=== PATIENT | female | born 1990 | race African-American/Black ===

== ENCOUNTER 2016-08-25 20:47 | Outpatient (CLI) | payer MEDICAID ==
[2016-08-25 21:14] LABS: APPEARANCE,URINE CLEAR; BILIRUBIN,URINE NEGATIVE (NEGATIVE); GLUCOSE, URINE NEGATIVE (NEGATIVE); KETONES,URINE NEGATIVE (NEGATIVE); LEUKOCYTE ESTERASE,URINE NEGATIVE (NEGATIVE); NITRITE,URINE NEGATIVE (NEGATIVE); PROTEIN,URINE NEGATIVE (NEGATIVE); URINE SPECIFIC GRAVITY 1.002; UROBILINOGEN,URINE NEGATIVE mg/dL (<2.0)
[2016-08-25 21:23] LABS: URINE BARBITURATES SCREEN NEGATIVE; URINE METHADONE SCREEN NEGATIVE; URINE OPIATES LOW NEGATIVE; URINE PHENCYCLIDINE SCREEN NEGATIVE
--- NOTE | 2016-08-25 23:16 | Non Stress Test Report ---
Non Stress Test Datetime Report Generated by CPN: 08/25/2016 23:16 DEMOGRAPHIC EGA NST: 39.6 INDICATION Indication for Study: Other Indication for Study (NST) Other: LC MONITORING Monitor Explained: Monitor Explained; Test Explained; Patient Verbalized Understanding Time on Monitor: 08/25/2016 21:03 Time off Monitor: 08/25/2016 21:45 NST Duration: 42 NST INTERVENTIONS NST Interventions: PO Hydration Physician Notified NST: Dr. Kim BABY A: [id number] BABY A Movement : Present Contraction Frequency : 5-6 FHR Baseline : 130 Accelerations : 15X15 Decelerations : None Variability : Moderate 6-25bpm NST Review: Meets Criteria for Reactive NST NST Review and Verified By : Loretta Carlos RNC NST Results: Reactive NST REPORT Report Trigger: Send Report
== END 2016-08-25 23:18 | disposition home or self-care (01) ==
LOC: LC 20:47
PROVIDERS: ATTEND Student in an Organized Health Care Education/Training Program
PROC: 4A1HXCZ Monitoring of Products of Conception, Cardiac Rate, External Approach (ICD-10-PCS; principal; 2016-08-25)
DX: O47.1 False labor at or after 37 completed weeks of gestation (principal); Z3A.39 39 weeks gestation of pregnancy
CPT/HCPCS: 59025; 80307; 81005

== ENCOUNTER 2016-08-27 14:05 | Inpatient (IN) | payer MEDICAID ==
[2016-08-27 14:54] LABS: APPEARANCE,URINE CLEAR; BILIRUBIN,URINE NEGATIVE (NEGATIVE); GLUCOSE, URINE NEGATIVE (NEGATIVE); KETONES,URINE NEGATIVE (NEGATIVE); LEUKOCYTE ESTERASE,URINE TRACE (NEGATIVE); NITRITE,URINE NEGATIVE (NEGATIVE); PROTEIN,URINE NEGATIVE (NEGATIVE); URINE SPECIFIC GRAVITY 1.002; UROBILINOGEN,URINE NEGATIVE mg/dL (<2.0)
[2016-08-27 15:17] LABS: URINE BARBITURATES SCREEN NEGATIVE; URINE METHADONE SCREEN NEGATIVE; URINE OPIATES LOW NEGATIVE; URINE PHENCYCLIDINE SCREEN NEGATIVE
[2016-08-27] MEDS ORDERED: RINGERS SOLUTION,LACTATED 1,000 ML IV ONE (17:48)
[2016-08-27 18:13] LABS: ABSOLUTE LYMPHOCYTES (AUTO) 1.3 10^3/uL (0.5-4.7); ABSOLUTE MONOCYTES (AUTO) 0.6 10^3/uL (0.1-1.4); BASOPHILS % (AUTO) 0.2 % (0-2); EOSINOPHILS % (AUTO) 0.3 % (0-6); HEMATOCRIT 30.9 % (36.0-47.0); HEMOGLOBIN 10.6 g/dL (12.0-15.5); HGB HCT DIFFERENCE 0.9; LYMPHOCYTES % (AUTO) 19.1 % (13-45); MEAN CORPUSCULAR HEMOGLOBIN 28.4 pg (27.0-33.4); MEAN CORPUSCULAR HGB CONC 34.4 g/dL (32.0-36.0); MEAN CORPUSCULAR VOLUME 83 fl (80-97); MONOCYTES % (AUTO) 8.9 % (3-13); RED BLOOD COUNT 3.74 10^6/uL (3.72-5.28); RED CELL DISTRIBUTION WIDTH 13.3 % (11.5-14.0); SEGMENTED NEUTROPHILS % (AUTO) 71.5 % (42-78)
[2016-08-27] MEDS: RINGERS SOLUTION,LACTATED 1,000 ML IV PRN ×2 (18:57→23:55)
--- NOTE | 2016-08-27 20:01 | L&D Flow Sheet ---
LD Flowsheet Datetime Report Generated by CPN: 08/27/2016 20:00 Datetime: 08/27/2016 19:27 NBP Sys/Adriana/Mean (mmHg): 116 (QS system process) : 72 (QS system process) : 86 (QS system process) Pulse: 78 (QS system process) LaborFlag: Antepartum (QS system process) Datetime: 08/27/2016 19:16 Level of Consciousness: Fully Conscious (Sweta Greenwood, JACKIE) DTR's/Clonus: DTRs 1+ (Sweta Chalman, RN) Headache: Denies (Sweta Chalman, RN) Breath Sounds, Left: Clear and Equal (Sweta Chalman, RN) Breath Sounds, Right: Clear and Equal (Wseta Chalman, RN) Nausea/Vomiting: Denies (Sweta Chalman, RN) RUQ Epigastric Pain: Denies (Sweta Chalman, RN) Datetime: 08/27/2016 19:08 Additional Nursing Comments: [facility] and care assumed (Sweta Chalman, RN) Datetime: 08/27/2016 19:07 Patient Care Comments: pt up to bathroom (Sweta Chalman, RN) Datetime: 08/27/2016 19:00 Monitor Mode: External (Kelly Marhefka, RN) Frequency (min): 2-5 (Kelly Marhefka, RN) Quality: Mild/Moderate (Kelly Marhefka, RN) Duration (sec): 40-160 (Kelly Marhefka, RN) Resting Tone (Palpate): Relaxed (Kelly Marhefka, RN) Monitor Mode: External US (Kelly Marhefka, RN) FHR Baseline Rate : 125 (Kelly Marhefka, RN) FHR Baseline Changes: No Baseline Change (Kelly Marhefka, RN) Variability: Moderate 6-25 bpm (Kelly Marhefka, RN) Accelerations: 15X15 (Kelly Marhefka, RN) Decelerations: None (Kelly Marhefka, RN) Datetime: 08/27/2016 18:54 I/O Interventions: Up to BR (Kelly Marhefka, RN) Datetime: 08/27/2016 18:40 Unit Routine: Consents Signed (Kelly Marhefka, RN) Datetime: 08/27/2016 18:30 Monitor Mode: External (Kelly Marhefka, RN) Frequency (min): 2-4 (Kelly Marhefka, RN) Quality: Mild/Moderate (Kelly Marhefka, RN) Duration (sec): 60-110 (Kelly Marhefka, RN) Resting Tone (Palpate): Relaxed (Kelly Marhefka, RN) Monitor Mode: External US (Kelly Marhefka, RN) FHR Baseline Rate : 125 (Kelly Marhefka, RN) FHR Baseline Changes: No Baseline Change (Kelly Marhefka, RN) Variability: Moderate 6-25 bpm (Kelly Marhefka, RN) Accelerations: 15X15 (Kelly Marhefka, RN) Decelerations: None (Kelly Marhefka, RN) Datetime: 08/27/2016 18:24 IV/Blood Work: IV Started (Kelly Edwards, RN) Datetime: 08/27/2016 18:08 Temperature (F): 98.3 (Kelly Edwards, RN) Temperature (C): 36.8 (QS system process) Temperature Route: Oral (Kelly Edwards, RN) LaborFlag: Antepartum (QS system process) Datetime: 08/27/2016 18:00 Monitor Mode: External; Palpation (Kelly Edwards RN) Frequency (min): 3-4 (Kelly Edwards RN) Quality: Mild/Moderate (Kelly Edwards RN) Duration (sec): 50-80 (Kelly Edwards RN) Resting Tone (Palpate): Relaxed (Kelly Edwards RN) Monitor Mode: External US (Kelly Edwards RN) FHR Baseline Rate : 125 (Kelly Edwards RN) FHR Baseline Changes: No Baseline Change (Kelly Marhefka, RN) Variability: Moderate 6-25 bpm (Kelly Marhefka, RN) Accelerations: 15X15 (Kelly Marhefka, RN) Decelerations: None (Kelly Marhefka, RN) Datetime: 08/27/2016 17:58 IV/Blood Work: Labs Drawn (Kelly Marhefka, RN) Datetime: 08/27/2016 17:43 Communication: Report Given to @ Dr. Kraus (Kelly Marhefka, RN) Communication Comments: Dr. Kraus notified of cervical change, order received to admit patient. (Kelly Marhefka, RN) Datetime: 08/27/2016 17:31 Patient Care Comments: Pt in chair position in bed (Kelly Edwards RN) Datetime: 08/27/2016 17:28 Dilatation (cm): 4.0 (Kelly Edwards RN) Effacement (%): 90 (Kelly Edwards RN) Station: -2 (Kelly Edwards RN) Exam by: Bubba Edwards RN (Kelly Edwards RN) Membrane Status: Bulging (Kelly Edwards RN) Vaginal Bleeding: None (Kelly Edwards RN) Cervix, Consistency: Soft (Kelly Edwards RN) Cervix, Position: Posterior (Kelly Edwards RN) Datetime: 08/27/2016 16:38 Patient Care Comments: Monitors removed, pt sent walking with reactive NST. (Kelly Edwards RN) Datetime: 08/27/2016 16:30 Monitor Mode: External (Kelly Marhefka, RN) Frequency (min): 6-8 (Kelly Marhefka, RN) Quality: Moderate (Kelly Marhefka, RN) Duration (sec): 60-100 (Kelly Marhefka, RN) Resting Tone (Palpate): Relaxed (Kelly Marhefka, RN) Monitor Mode: External US (Kelly Marhefka, RN) FHR Baseline Rate : 135 (Kelly Marhefka, RN) FHR Baseline Changes: No Baseline Change (Kelly Marhefka, RN) Variability: Moderate 6-25 bpm (Kelly Marhefka, RN) Accelerations: 15X15 (Kelly Marhefka, RN) Decelerations: None (Kelly Marhefka, RN) Datetime: 08/27/2016 16:24 NBP Sys/Adriana/Mean (mmHg): 119 (QS system process) : 73 (QS system process) : 92 (QS system process) Pulse: 68 (QS system process) Respirations: 16 (Kelly Segundofka, RN) LaborFlag: Antepartum (QS system process) Datetime: 08/27/2016 16:03 I/O Interventions: Up to BR (Kelly Segundofka, RN) Datetime: 08/27/2016 16:00 Monitor Mode: External (Kelly Edwards, RN) Frequency (min): 6-8 (Kelly Edwards, RN) Quality: Moderate (Kelly dEwards, RN) Duration (sec): 70-100 (Kelly Edwards, RN) Resting Tone (Palpate): Relaxed (Kelly Edwards, RN) Monitor Mode: External US (Kelly Edwards RN) FHR Baseline Rate : 150 (Kelly Edwards, RN) FHR Baseline Changes: No Baseline Change (Kelly Edwards, RN) Variability: Moderate 6-25 bpm (Kelly Segundofka, RN) Accelerations: None (Kelly Edwards, RN) Decelerations: None (Kelly Edwards RN) Communication: Report Given to @ Dr. Kraus (Kelly Edwards RN) Notification Reason: Status Update; Status; Labor Status; Membrane Status; Uterine Activity; Pain (Kelly Edwards RN) Communication Comments: Order received to send pt to U/S for BPP. (Kelly Edwards RN) Datetime: 08/27/2016 15:53 NBP Sys/Adriana/Mean (mmHg): 114 (QS system process) : 67 (QS system process) : 85 (QS system process) Pulse: 74 (QS system process) LaborFlag: Antepartum (QS system process) Datetime: 08/27/2016 15:30 Monitor Mode: External (Kelly Edwards RN) Frequency (min): 5-6 (Kelly Edwards RN) Quality: Moderate (Kelly Edwards RN) Duration (sec): 70-120 (Kelly Edwards RN) Resting Tone (Palpate): Relaxed (Kelly Edwards RN) Monitor Mode: External US (Kelly Marhefka, RN) FHR Baseline Rate : 150 (Kelly Marhefka, RN) FHR Baseline Changes: No Baseline Change (Kelly Marhefka, RN) Variability: Moderate 6-25 bpm (Kelly Marhefka, RN) Accelerations: None (Kelly Marhefka, RN) Decelerations: None (Kelly Marhefka, RN) Datetime: 08/27/2016 15:29 Patient Care Comments: Juice provided (Kelly Marhefka, RN) Datetime: 08/27/2016 15:25 NBP Sys/Adriana/Mean (mmHg): 112 (QS system process) : 72 (QS system process) : 86 (QS system process) Pulse: 74 (QS system process) Respirations: 16 (Kelly Marhefka, RN) Temperature (F): 98.2 (Kelly Marhefka, RN) Temperature (C): 36.8 (QS system process) Temperature Route: Oral (Kelly Marikahefka, RN) LaborFlag: Antepartum (QS system process) Datetime: 08/27/2016 15:22 Patient Position/Activity: Right Lateral; Semi-Fowlers (Kelly Marhefka, RN) Datetime: 08/27/2016 15:18 I/O Interventions: Up to BR (Kelly Marhefka, RN) Datetime: 08/27/2016 15:00 Monitor Mode: External; Palpation (Kelly Marhefka, RN) Frequency (min): 2-6 (Kelly Marhefka, RN) Quality: Mild/Moderate (Kelly Marhefka, RN) Duration (sec): 50-140 (Kelly Edwards RN) Resting Tone (Palpate): Relaxed (Kelly Edwards RN) Monitor Mode: External US (Kelly Edwards RN) FHR Baseline Rate : 160 (Kelly Edwards RN) FHR Baseline Changes: No Baseline Change (Kelly Edwards RN) Variability: Moderate 6-25 bpm (Kelly Edwards RN) Accelerations: None (Kelly Edwards RN) Decelerations: None (Kelly Edwards, RN) Datetime: 08/27/2016 14:43 Frequency (min): 2-3 minutes apart (Kelly Edwards RN) Pain Scale: 4 (Kelly Edwards RN) Pain Presence: Intermittent (Kelly Edwards RN) Pain Type: Contraction (Kelly Edwards RN) Pain Location: Abdomen (Kelly Edwards RN) Pain Goal: 0 (Kelly Edwards RN) Pain Relief Measures: Comfort Measures (Kelly Edwards RN) Pain Coping: Breathing Through Contractions (Kelly Edwards RN) Membrane Status: Intact (Kelly Edwards RN) Vaginal Bleeding: None (Kelly Edwards RN) Level of Consciousness: Fully Conscious (Kelly Edawrds RN) DTR's/Clonus: DTRs 2+; No Clonus (Kelly Edwards RN) Headache: Denies (Kelly Edwards RN) Breath Sounds, Left: Clear and Equal (Kelly Edwards RN) Breath Sounds, Right: Clear and Equal (Kelly Edwards RN) Nausea/Vomiting: Denies (Kelly Edwards RN) RUQ Epigastric Pain: Denies (Kelly Edwards RN) LaborFlag: Antepartum (QS system process) Datetime: 08/27/2016 14:37 I/O Interventions: Popsicle (Kelly Edwards RN) Datetime: 08/27/2016 14:30 Dilatation (cm): 3.0 (Kelly Edwards RN) Effacement (%): 90 (Kelly Edwards RN) Exam by: Bubba Edwards RN (Kelly Edwards RN) Membrane Status: Bulging (Kelly Edwards RN) Vaginal Bleeding: None (Kelly Edwards RN) Cervix, Consistency: Soft (Kelly Edwards RN) Cervix, Position: Posterior (Kelly Edwards RN) Datetime: 08/27/2016 14:23 Patient Position/Activity: Left Lateral; Semi-Fowlers (Kelly Edwards RN) I/O Interventions: Clear Liquids Given (Kelly Edwards RN) Instructional Method: Verbal; Patient Instructed; Verbalized Understanding (Kelly Edwards RN) Plan of Care: Plan of Care Discussed (Kelly Edwards RN) Unit Routine: [place] to Room; Call King; Bed; Unit Personnel; Monitoring; Bathroom Privileges (Kelly Edwards RN) Datetime: 08/27/2016 14:20 Stage of : Antepartum (Kelly Edwards RN)
[2016-08-27] MEDS ORDERED: OXYTOCIN/NORMAL SALINE 20 UNIT/1,000 ML RTUINJ ONE (21:01)
[2016-08-27] MEDS ORDERED: LIDOCAINE 1% INJ-PF (10 MG/ML) 30 ML SDV ONE (21:01)
[2016-08-27] MEDS ORDERED: MISOPROSTOL 0.2 MG TABLET ONE (21:01)
[2016-08-27] MEDS ORDERED: EPHEDRINE SULFATE INJ 50 MG/1 ML AMPULE ONE (21:44)
[2016-08-27] MEDS ORDERED: FENTANYL/BUPIVACAINE/NS/PF 200 MCG/100 ML RTUINJ EPI ONE (21:44)
[2016-08-27] MEDS ORDERED: BUPIVACAINE HCL 0.25 % INJ/PF (2.5 MG/1 ML) 30 ML VIAL ONE (21:44)
[2016-08-27] MEDS ORDERED: OXYTOCIN/NORMAL SALINE 1,000 ML IV PRN (22:46)
--- NOTE | 2016-08-28 03:35 | Delivery Summary ---
Del Sum A-C Datetime Report Generated by CPN: 08/28/2016 03:35 ADMISSION DATA Chief Complaint: Uterine Contractions Indication for Induction: Not Applicable Admission Impression: Term, Intrauterine ; Active Labor; Intact Membranes Admit Provider Comments: Term early labor. gbs neg. arom clear. pain mgmt as per pt DELIVERY PERSONNEL Delivery Doctor:: Klarissa Kraus MD Labor and Delivery Nurse:: Sweta Greenwood RN Labor and Delivery Nurse:: Debra Akhtar RN MATERNAL INFORMATION Delivery Anesthesia: Epidural Medications After Delivery: Pitocin Bolus-Please Comment Meds After Delivery Comment: Pitocin 20 units/1000 ml NS bolus following placenta Estimated Blood Loss (ml): 300 Maternal Complications: None Provider Comments: over lac as above with repair. live male infant ap 8/9. spontaneous intact placenta 3vc. no complications LABOR SUMMARY EDC: 08/26/2016 00:00 No. Babies in Womb: 1 Attempted: No Labor Anesthesia: Epidural LABOR INFORMATION Reason for Induction: Not Applicable Onset of Labor: 08/27/2016 21:39 Complete Dilatation: 08/28/2016 01:18 Oxytocin: Augmentation Group B Beta Strep: negative Antibiotics # of Doses: 0 Antibiotics Time of Last Dose: n/a Steroids Given: None Reason Steroids Not Administered: Not Applicable MEMBRANES Membranes Rupture Method: Artificial Rupture of Membranes: 08/27/2016 20:10 Length of Rupture (hr): 6.88 Amniotic Fluid Color: Clear Amniotic Fluid Amount: Small Amniotic Fluid Odor: Normal STAGES OF LABOR Stage 1 hr: 3 Stage 1 min: 39 Stage 2 hr: 1 Stage 2 min: 45 Stage 3 hr: 0 Stage 3 min: 3 Total Time in Labor hr: 5 Total Time in Labor min: 27 VAGINAL DELIVERY Episiotomy: None Laceration Extension: Second Degree Laceration Type: Perineal Laceration Repair: Yes Laceration Repair Note: 2nd deg perineal repaired with 3-0 vicryl in usual fashion Sponge Count Correct: N/A Sharps Count Correct: N/A CSECTION DELIVERY Primary Indication: N/A Secondary Indication: N/A CSection Incidence: N/A Labor: N/A Elective: N/A CSection Incision: N/A BABY A INFORMATION Delivery Date/Time: 08/28/2016 03:03 Method of Delivery: Vaginal Born in Route : No : N/A Forceps: N/A Vacuum Extraction: N/A Shoulder Dystocia : No PRESENTATION/POSITION BABY A Presentation: Cephalic Cephalic Presentation: Vertex Vertex Position: Occipital anterior Breech Presentation: N/A PLACENTA INFORMATION BABY A Placenta Delivery Time : 08/28/2016 03:06 Placenta Method of Delivery: Spontaneous Placenta Status: Delivered SCORES BABY A Heart Rate 1 min: >100 bpm Resp Effort 1 min: Good Cry Reflex Irritability 1 min: Cough or Sneeze or Pulls Away Muscle Tone 1 min: Active Motion Color 1 min: Blue/Pale Resuscitation Effort 1 min: Tactile Stimulation SCORE 1 MIN: 8 Heart Rate 5 min: >100 bpm Resp Effort 5 min: Good Cry Reflex Irritability 5 min: Cough or Sneeze or Pulls Away Muscle Tone 5 min: Active Motion Color 5 min: Body Ackerman, Extremities Blue SCORE 5 MIN: 9 INFANT INFORMATION BABY A Gestational Age at Delivery: 40.2 Gestational Status: Full Term- 39- 40.6 Weeks Infant Outcome : Liveborn Condition : Stable Sex: Male IDENTIFICATION BABY A Verification Date/Time: 08/28/2016 03:13 ID Band Number: [id number] Mother's Name Verified: Yes RN Verifying Infant: K. Hermilo, RN Additional Verifying Personnel: Maria A Viera, RN CORD INFORMATION BABY A No. Cord Vessels: 3 Nuchal Cord : N/A Cord Blood Taken: Yes-For Storage (Mom's Blood type +) Suction: Mouth; Nose ASSESSMENT BABY A Complications: None Physical Findings at Delivery: Within Normal Limits Respirations: Appears Normal Skin to Skin: Yes Rivet Machine Operator/ALS Called : No Care By: Liudmila Hermilo, RN Transferred To: Remains with Mother BABY B INFORMATION : N/A SIGNATURES Signature: with User ID: [email or web address]
[2016-08-28] MEDS ORDERED: IBUPROFEN 800 MG TABLET ONE (03:49)
[2016-08-28] MEDS ORDERED: ACETAMINOPHEN WITH CODEINE #3 TABLET ONE (03:49)
--- NOTE | 2016-08-28 05:33 | Admission Physical ---
Datetime Report Generated by CPN: 08/28/2016 05:32 CURRENT ADMISSION Hx Assessment: The History has been Reviewed and is Current Chief Complaint: Uterine Contractions Indication for Induction: Not Applicable Admit Plan: Admit to Unit; Initiate Labor Protocol ALLERGIES Medication Allergies: No Medication Allergies: No Known Allergies (08/25/2016) Latex: No Latex Allergies Environmental Allergies: seasonal OBSTETRICAL HISTORY EDC: 08/26/2016 00:00 : 1 Para: 0 Term: 0 : 0 SAB: 0 IAB: 0 Ectopic: 0 Livin Cesareans: 0 VBACs: 0 Multiple Births: 0 Gestational Diabetes: No Rh Sensitization: No Incompetent Cervix: No BENNY: No Infertility: No ART Treatment: No Uterine Anomaly: No IUGR: No Hx Previous C/S: No Macrosomia: No Hx Loss/Stillborn: No PIH: No Hx : No Placenta Previa/Abruption: No Depression/PP Depression: No PTL/PROM: No Post Hemorrhage: No Current Procedures: Ultrasound; NST Obstetrical History Comments: G1PO- Current SEE RECORDS Alcohol: No Marijuana : No Cocaine: No Other Illicit Drugs: No Cigarettes: Former Smoker. 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 Heart Disease: No Hosp/Surgery: No Autoimmune Disorder: No Anesthetic Complications: No Kidney Disease: No Abnormal Pap Smear: No Neuro/Epilepsy: No Psychiatric Disorders: No Other Medical Diseases: No Hepatitis/Liver Disease: No Significant Family History: No Varicosities/Phlebitis: No Trauma/Violence : No Thyroid Dysfunction: No INFECTIOUS HISTORY Gonorrhea: No Genital Herpes: No Chlamydia: No Tuberculosis: No Syphilis: No Hepatitis: No HIV/AIDS Exposure: No Rash or Viral Illness: No HPV: No PHYSICAL EXAM General: Normal HEENT: Deferred Neurologic: Deferred Thyroid: Deferred Heart: Normal Lungs: Normal Breast: Deferred Back: Deferred Abdomen: Normal Genitourinary Exam: Normal Extremities: Normal DTRs: Normal Pelvic Type: Adequate Vital Signs: Reviewed; Within Normal Limits VAGINAL EXAM Contraction Comments: q2-4 MEMBRANES Membranes: Ruptured Amniotic Fluid Color: Clear FETUS A EGA: 40.1 FHR- Baseline: 130 Variability: Moderate 6-25bpm Accelerations: 15X15 Decelerations: None FHR Category: Category I Admit Comment: Term early labor. gbs neg. arom clear. pain mgmt as per pt PLANS FOR LABOR AND DELIVERY Labor and Delivery: None Pain Management: Natural Feeding Preference: Breast Benefit of Breast Feed Discussed: Yes Circumcision: Yes INFORMED CONSENT Signature: with User ID: [email or web address]
[2016-08-28] MEDS ORDERED: DIPH/PERTUSS(ACELL)/TETANUS VAC/PF 0.5 ML SYR (>=10YO) IM PRN (05:44)
[2016-08-28] MEDS ORDERED: OXYTOCIN/NORMAL SALINE 1,000 ML IV PRN (05:44)
[2016-08-28] MEDS ORDERED: ZOLPIDEM TARTRATE 5 MG TABLET PO PRN (05:44)
[2016-08-28] MEDS ORDERED: ACETAMINOPHEN WITH CODEINE #3 TABLET PO PRN ×2 (05:44)
[2016-08-28] MEDS ORDERED: BENZOCAINE/MENTHOL AEROSOL SPRAY 56 ML TOP PRN (05:44)
[2016-08-28] MEDS ORDERED: MEASLES,MUMPS&RUBELLA VACC/PF 0.5 ML VIAL SUBCUT PRN (05:44)
[2016-08-28] MEDS ORDERED: DIBUCAINE 1% OINTMENT 28 GM TP PRN (05:44)
[2016-08-28] MEDS: IBUPROFEN 800 MG TABLET PO SCH ×3 (06:02→21:23)
--- NOTE | 2016-08-28 07:01 | L&D Flow Sheet ---
LD Flowsheet Datetime Report Generated by CPN: 08/28/2016 07:00 Datetime: 08/28/2016 04:51 NBP Sys/Adriana/Mean (mmHg): 125 (QS system process) : 80 (QS system process) : 99 (QS system process) Pulse: 95 (QS system process) LaborFlag: Antepartum (QS system process) Datetime: 08/28/2016 04:36 NBP Sys/Adriana/Mean (mmHg): 144 (QS system process) : 85 (QS system process) : 104 (QS system process) Pulse: 93 (QS system process) LaborFlag: Antepartum (QS system process) Datetime: 08/28/2016 04:20 NBP Sys/Adriana/Mean (mmHg): 134 (QS system process) : 80 (QS system process) : 101 (QS system process) Pulse: 93 (QS system process) LaborFlag: Antepartum (QS system process) Datetime: 08/28/2016 04:06 NBP Sys/Adriana/Mean (mmHg): 134 (QS system process) : 73 (QS system process) : 97 (QS system process) Pulse: 93 (QS system process) LaborFlag: Antepartum (QS system process) Datetime: 08/28/2016 03:51 NBP Sys/Adriana/Mean (mmHg): 128 (QS system process) : 78 (QS system process) : 95 (QS system process) Pulse: 100 (QS system process) Temperature (F): 99.7 (Sweta Greenwood RN) Temperature (C): 37.6 (QS system process) Temperature Route: Axillary (Sweta Greenwood RN) LaborFlag: Antepartum (QS system process) Datetime: 08/28/2016 03:36 NBP Sys/Adriana/Mean (mmHg): 135 (QS system process) : 66 (QS system process) : 94 (QS system process) Pulse: 112 (QS system process) LaborFlag: Antepartum (QS system process) Datetime: 08/28/2016 03:07 Pain Scale: 1 (Sweta Greenwood RN) Pain Presence: Constant (Sweta Greenwood RN) Pain Type: Burning (Sweta Greenwood RN) Pain Location: Perineum (Sweta Greenwood RN) LaborFlag: Antepartum (QS system process) Datetime: 08/28/2016 03:06 Comments: delivery of intact placenta (Sweta Greenwood RN) Datetime: 08/28/2016 03:03 Monitor Mode: External; Palpation (Sweta Greenwood RN) Frequency (min): 2-3 (Sweta Greenwood RN) Quality: Moderate to Strong (Sweta Greewnood RN) Duration (sec): 50-70 (Sweta Greenwood RN) Pattern: Normal: <= 5 Contractions in 10 Minutes (Sweta Greenwood RN) Resting Tone (Palpate): Relaxed (Sweta Greenwood RN) Monitor Mode: External US (Sweta Greenwood RN) FHR Baseline Rate : 115 (Sweta Greenwood RN) FHR Baseline Changes: No Baseline Change (Sweta Greenwood RN) Variability: Moderate 6-25 bpm (Sweta Greenwood, RN) Accelerations: 15X15 (Sweta Greenwood, RN) Decelerations: None (Sweta Greenwood RN) Comments: delivery of viable baby boy. was placed on maternal abd where dried and stimulated. cord was clamped and cut. was then placed on maternal skin to skin (Sweta Greenwood, RN) Datetime: 08/28/2016 02:59 Pushing Progress: with Pushing; Pushing Effectively with Contractions (Sweta Greenwood, RN) Datetime: 08/28/2016 02:57 Patient Care Comments: Dr. Kraus at bedside for delivery (Sweta Greenwood, JACKIE) Datetime: 08/28/2016 02:55 Patient Care Comments: Dr. Kraus called for delivery (Sweta Greenwood RN) Datetime: 08/28/2016 02:51 NBP Sys/Adriana/Mean (mmHg): 130 (QS system process) : 71 (QS system process) : 92 (QS system process) Pulse: 116 (QS system process) LaborFlag: Antepartum (QS system process) Datetime: 08/28/2016 02:45 Monitor Mode: External; Palpation (Sweta Greenwood RN) Frequency (min): 2-3 (Sweta Greenwood RN) Quality: Moderate to Strong (Sweta Greenwood RN) Duration (sec): 50-70 (Sweta Greenwood RN) Pattern: Normal: <= 5 Contractions in 10 Minutes (Sweta Chalman, RN) Resting Tone (Palpate): Relaxed (Sweta Chalman, RN) Monitor Mode: External US (Sweta Greenwood RN) FHR Baseline Rate : 115 (Sweta Krystyna, RN) Variability: Moderate 6-25 bpm (Sweta Chalman, RN) Accelerations: 15X15 (Sweta Chalman, RN) Decelerations: None (Sweta Sherieman, RN) Datetime: 08/28/2016 02:35 NBP Sys/Adriana/Mean (mmHg): 123 (QS system process) : 82 (QS system process) : 95 (QS system process) Pulse: 111 (QS system process) LaborFlag: Antepartum (QS system process) Datetime: 08/28/2016 02:30 Monitor Mode: External; Palpation (Sweta Chalman, RN) Frequency (min): 2-3 (Sweta Chalman, RN) Quality: Moderate to Strong (Sweta Krystyna, RN) Duration (sec): 50-70 (Sweta Krystyna, RN) Pattern: Normal: <= 5 Contractions in 10 Minutes (Sweta Chalman, RN) Resting Tone (Palpate): Relaxed (Sweta Chalman, RN) Monitor Mode: External US (Sweta Chalman, RN) FHR Baseline Rate : 125 (Sweta Chalman, RN) FHR Baseline Changes: Return to Previous Baseline (Sweta Chalman, RN) Variability: Moderate 6-25 bpm (Sweta Chalman, RN) Accelerations: 15X15 (Sweta Chalman, RN) Decelerations: None (Sweta Chalman, RN) Datetime: 08/28/2016 02:26 Pushing: Coached on Pushing; Urge to Push (Sweta Chalman, RN) Pushing Position: Pushing with Contractions (Sweta Chalman, RN) Pushing Progress: Descent with Pushing (Sweta Chalman, RN) Datetime: 08/28/2016 02:22 Patient Care Comments: pt placed in stirrups and pushing with RN continuously at bedside (Sweta Chalman, RN) Datetime: 08/28/2016 02:21 NBP Sys/Adriana/Mean (mmHg): 129 (QS system process) : 88 (QS system process) : 103 (QS system process) Pulse: 109 (QS system process) LaborFlag: Antepartum (QS system process) Datetime: 08/28/2016 02:18 Pitocin (milliunit): Pitocin Increased to (milliunits) @ (Annotations: 10) (Sweta Chalman, RN) Datetime: 08/28/2016 02:15 Monitor Mode: External; Palpation (Sweta Chalman, RN) Frequency (min): 2-3 (Sweta Chalman, RN) Quality: Moderate to Strong (Sweta Chalman, RN) Duration (sec): 50-70 (Sweta Chalman, RN) Pattern: Normal: <= 5 Contractions in 10 Minutes (Sweta Chalman, RN) Resting Tone (Palpate): Relaxed (Sweta Chalman, RN) Monitor Mode: External US (Sweta Chalman, RN) FHR Baseline Rate : 120 (Sweta Chalman, RN) Variability: Moderate 6-25 bpm (Sweta Chalman, RN) Accelerations: 15X15 (Sweta Chalman, RN) Decelerations: None (Sweta Chalman, RN) Datetime: 08/28/2016 02:07 NBP Sys/Adriana/Mean (mmHg): 114 (QS system process) : 64 (QS system process) : 82 (QS system process) Pulse: 85 (QS system process) LaborFlag: Antepartum (QS system process) Datetime: 08/28/2016 02:00 Monitor Mode: External; Palpation (Sweta Chalman, RN) Frequency (min): 2-3 (Sweta Chalman, RN) Quality: Moderate to Strong (Sweta Chalman, RN) Duration (sec): 50-80 (Sweta Chalman, RN) Pattern: Normal: <= 5 Contractions in 10 Minutes (Sweta Chalman, RN) Resting Tone (Palpate): Relaxed (Sweta Chalman, RN) Monitor Mode: External US (Sweta Chalman, RN) FHR Baseline Rate : 125 (Sweta Chalman, RN) FHR Baseline Changes: No Baseline Change (Sweta Chalman, RN) Variability: Moderate 6-25 bpm (Sweta Chalman, RN) Accelerations: 15X15 (Sweta Chalman, RN) Decelerations: None (Sweta Chalman, RN) Datetime: 08/28/2016 01:51 NBP Sys/Adriana/Mean (mmHg): 120 (QS system process) : 58 (QS system process) : 82 (QS system process) Pulse: 104 (QS system process) LaborFlag: Antepartum (QS system process) Datetime: 08/28/2016 01:45 Monitor Mode: External; Palpation (Sweta Chalman, RN) Frequency (min): 1-3 (Sweta Chalman, RN) Quality: Moderate to Strong (Sweta Chalman, RN) Duration (sec): 50-70 (Sweta Chalman, RN) Pattern: Normal: <= 5 Contractions in 10 Minutes (Sweta Chalman, RN) Resting Tone (Palpate): Relaxed (Sweta Chalman, RN) Monitor Mode: External US (Sweta Chalman, RN) FHR Baseline Rate : 135 (Sweta Chalman, RN) FHR Baseline Changes: No Baseline Change (Sweta Chalman, RN) Variability: Moderate 6-25 bpm (Sweta Chalman, RN) Accelerations: 15X15 (Sweta Chalman, RN) Decelerations: None (Sweta Chalman, RN) Datetime: 08/28/2016 01:36 NBP Sys/Adriana/Mean (mmHg): 116 (QS system process) : 70 (QS system process) : 85 (QS system process) Pulse: 95 (QS system process) LaborFlag: Antepartum (QS system process) Datetime: 08/28/2016 01:30 Monitor Mode: External; Palpation (Sweta Chalman, RN) Frequency (min): 2-4 (Sweta Chalman, RN) Quality: Moderate to Strong (Sweta Chalman, RN) Duration (sec): 50-70 (Sweta Chalman, RN) Pattern: Normal: <= 5 Contractions in 10 Minutes (Sweta Chalman, RN) Resting Tone (Palpate): Relaxed (Sweta Chalman, RN) Monitor Mode: External US (Sweta Chalman, RN) FHR Baseline Rate : 135 (Sweta Chalman, RN) FHR Baseline Changes: No Baseline Change (Sweta Chalman, RN) Variability: Moderate 6-25 bpm (Sweta Chalman, RN) Accelerations: 15X15 (Sweta Chalman, RN) Decelerations: None (Sweta Chalman, RN) Datetime: 08/28/2016 01:22 Communication Comments: report to Dr. Kraus. Provider aware that pt is complete but needs to labor down in order to gain urge to push (Sweta Chalman, RN) Datetime: 08/28/2016 01:21 NBP Sys/Adriana/Mean (mmHg): 106 (QS system process) : 69 (QS system process) : 81 (QS system process) Pulse: 100 (QS system process) LaborFlag: Antepartum (QS system process) Datetime: 08/28/2016 01:20 Patient Position/Activity: Left Lateral; Peanut Ball (Sweta Greenwood, RN) Datetime: 08/28/2016 01:18 Dilatation (cm): 10.0 (Sweta Greenwood RN) Effacement (%): 100 (Sweta Greenwood RN) Station: 1 (Sweta Greenwood RN) Exam by: Srinivas Greenwood RN (Sweta Greenwood RN) Patient Care Comments: pt states the urge to have a bowel movement. SVE (Sweta Greenwood RN) Datetime: 08/28/2016 01:15 Monitor Mode: External; Palpation (Sweta Greenwood RN) Frequency (min): 2-3 (Sweta Greenwood RN) Quality: Moderate to Strong (Sweta Greenwood RN) Duration (sec): 50-70 (Sweta Greenwood RN) Pattern: Normal: <= 5 Contractions in 10 Minutes (Sweta Greenwood RN) Resting Tone (Palpate): Relaxed (Sweta Greenwood RN) Monitor Mode: External US (Sweta Greenwood RN) FHR Baseline Rate : 135 (Sweta Greenwood RN) FHR Baseline Changes: No Baseline Change (Sweta Greenwood RN) Variability: Moderate 6-25 bpm (Sweta Greenwood RN) Accelerations: 15X15 (Sweta Greenwood RN) Decelerations: None (Sweta Greenwood RN) Datetime: 08/28/2016 01:06 NBP Sys/Adriana/Mean (mmHg): 107 (QS system process) : 66 (QS system process) : 82 (QS system process) Pulse: 115 (QS system process) LaborFlag: Antepartum (QS system process) Datetime: 08/28/2016 01:00 Monitor Mode: External; Palpation (Sweta Greenwood, RN) Frequency (min): 2-4 (Sweta Krystyna, RN) Quality: Moderate to Strong (Sweta Sherieman, RN) Duration (sec): 50-70 (Sweta Sherieman, RN) Pattern: Normal: <= 5 Contractions in 10 Minutes (Sweta Sherieman, RN) Resting Tone (Palpate): Relaxed (Sweta Krystyna, RN) Monitor Mode: External US (Sweta Krystyna, RN) FHR Baseline Rate : 135 (Sweta Sherieman, RN) FHR Baseline Changes: No Baseline Change (Sweta Chalman, RN) Variability: Moderate 6-25 bpm (Sweta Chalman, RN) Accelerations: 15X15 (Sweta Chalman, RN) Decelerations: None (Sweta Chalman, RN) Datetime: 08/28/2016 00:50 NBP Sys/Adriana/Mean (mmHg): 102 (QS system process) : 56 (QS system process) : 72 (QS system process) Pulse: 110 (QS system process) Pitocin (milliunit): Pitocin Remains (milliunits) @ (Annotations: 8) (Sweta Greenwood RN) LaborFlag: Antepartum (QS system process) Datetime: 08/28/2016 00:45 Monitor Mode: External; Palpation (Sweta Greenwood RN) Frequency (min): 2-3 (Sweta Greenwood RN) Quality: Moderate to Strong (Sweta Greenwood RN) Duration (sec): 50-70 (Sweta Greenwood RN) Pattern: Normal: <= 5 Contractions in 10 Minutes (Sweta Greenwood RN) Resting Tone (Palpate): Relaxed (Sweta Greenwood RN) Monitor Mode: External US (Sweta Greenwood RN) FHR Baseline Rate : 135 (Sweta Greenwood RN) FHR Baseline Changes: Return to Previous Baseline (Sweta Greenwood RN) Variability: Moderate 6-25 bpm (Sweta Greenwood RN) Accelerations: 15X15 (Sweta Chalman, RN) Decelerations: None (Sweta Chalman, RN) Datetime: 08/28/2016 00:37 NBP Sys/Adriana/Mean (mmHg): 103 (QS system process) : 61 (QS system process) : 78 (QS system process) Pulse: 95 (QS system process) LaborFlag: Antepartum (QS system process) Datetime: 08/28/2016 00:35 Pitocin (milliunit): Pitocin Remains (milliunits) @ (Annotations: 8) (Sweta Chalman, RN) Datetime: 08/28/2016 00:30 Monitor Mode: External; Palpation (Sweta Chalman, RN) Frequency (min): 2-3 (Sweta Chalman, RN) Quality: Moderate to Strong (Sweta Chalman, RN) Duration (sec): 50-70 (Sweta Chalman, RN) Pattern: Normal: <= 5 Contractions in 10 Minutes (Sweta Chalman, RN) Resting Tone (Palpate): Relaxed (Sweta Chalman, RN) Monitor Mode: External US (Sweta Chalman, RN) FHR Baseline Rate : 140 (Sweta Chalman, RN) Variability: Moderate 6-25 bpm (Sweta Chalman, RN) Accelerations: 15X15 (Sweta Chalman, RN) Decelerations: None (Sweta Chalman, RN) Datetime: 08/28/2016 00:20 Patient Position/Activity: Right Lateral; Peanut Ball (Sweta Chalman, RN) Datetime: 08/28/2016 00:19 Pitocin (milliunit): Pitocin Increased to (milliunits) @ 8 (Sweta Chalman, RN) Datetime: 08/28/2016 00:15 Monitor Mode: External; Palpation (Sweta Sherieman, RN) Frequency (min): 2-3 (Sweta Chalman, RN) Quality: Moderate to Strong (Sweta Chalman, RN) Duration (sec): 50-70 (Sweta Chalman, RN) Pattern: Normal: <= 5 Contractions in 10 Minutes (Sweta Chalman, RN) Resting Tone (Palpate): Relaxed (Sweta Chalman, RN) Monitor Mode: External US (Sweta Chalman, RN) FHR Baseline Rate : 140 (Sweta Chalman, RN) FHR Baseline Changes: No Baseline Change (Sweta Chalman, RN) Variability: Moderate 6-25 bpm (Sweta Chalman, RN) Accelerations: 15X15 (Sweta Chalman, RN) Decelerations: None (Sweta Chalman, RN) Datetime: 08/28/2016 00:05 NBP Sys/Adriana/Mean (mmHg): 99 (QS system process) : 55 (QS system process) : 71 (QS system process) Pulse: 83 (QS system process) LaborFlag: Antepartum (QS system process) Datetime: 08/28/2016 00:00 Monitor Mode: External; Palpation (Sweta Chalman, RN) Frequency (min): 2-4 (Sweta Sherieman, RN) Quality: Moderate to Strong (Sweta Chalman, RN) Duration (sec): 50-70 (Sweta Chalman, RN) Pattern: Normal: <= 5 Contractions in 10 Minutes (Sweta Chalman, RN) Resting Tone (Palpate): Relaxed (Sweta Chalman, RN) Monitor Mode: External US (Sweta Sherieman, RN) FHR Baseline Rate : 140 (Sweta Chalman, RN) Variability: Moderate 6-25 bpm (Sweta Chalman, RN) Accelerations: 15X15 (Sweta Chalman, RN) Decelerations: None (Sweta Chalman, RN) Datetime: 08/27/2016 23:55 IV/Blood Work: New IV Bag Hung (Sweta Greenwood RN) Datetime: 08/27/2016 23:50 NBP Sys/Adriana/Mean (mmHg): 96 (QS system process) : 53 (QS system process) : 69 (QS system process) Pulse: 99 (QS system process) Pitocin (milliunit): Pitocin Increased to (milliunits) @ (Annotations: 6) (Sweta Greenwood RN) LaborFlag: Antepartum (QS system process) Datetime: 08/27/2016 23:45 Monitor Mode: External; Palpation (Sweta Greenwood RN) Frequency (min): 2-4 (Sweta Greenwood RN) Quality: Moderate to Strong (Sweta Greenwood RN) Duration (sec): 50-70 (Sweta Greenwood RN) Pattern: Normal: <= 5 Contractions in 10 Minutes (Sweta Sherieman, RN) Resting Tone (Palpate): Relaxed (Sweta Chalman, RN) Monitor Mode: External US (Sweta Greenwood, RN) FHR Baseline Rate : 135 (Sweta Sherieman, RN) FHR Baseline Changes: No Baseline Change (Sweta Chalman, RN) Variability: Moderate 6-25 bpm (Sweta Chalman, RN) Accelerations: 15X15 (Sweta Chalman, RN) Decelerations: None (Sweta Chalman, RN) Datetime: 08/27/2016 23:36 NBP Sys/Adriana/Mean (mmHg): 93 (QS system process) : 53 (QS system process) : 70 (QS system process) Pulse: 79 (QS system process) LaborFlag: Antepartum (QS system process) Datetime: 08/27/2016 23:30 Monitor Mode: External; Palpation (Sweta Chalman, RN) Frequency (min): 2-3 (Sweta Chalman, RN) Quality: Moderate to Strong (Sweta Chalman, RN) Duration (sec): 50-70 (Sweta Chalman, RN) Pattern: Normal: <= 5 Contractions in 10 Minutes (Sweta Chalman, RN) Resting Tone (Palpate): Relaxed (Sweta Chalman, RN) Monitor Mode: External US (Sweta Chalman, RN) FHR Baseline Rate : 135 (Sweta Chalman, RN) FHR Baseline Changes: Return to Previous Baseline (Sweta Chalman, RN) Variability: Moderate 6-25 bpm (Sweta Chalman, RN) Accelerations: 15X15 (Sweta Chalman, RN) Decelerations: None (Sweta Chalman, RN) Datetime: 08/27/2016 23:28 Patient Position/Activity: Left Lateral; Peanut Ball (Sweta Sherieman, RN) Datetime: 08/27/2016 23:26 Temperature (F): 99.0 (Sweta Sherieman, RN) Temperature (C): 37.2 (QS system process) Temperature Route: Axillary (Sweta Chalman, RN) Pitocin (milliunit): Pitocin Increased to (milliunits) @ 4 (Sweta Greenwood RN) LaborFlag: Antepartum (QS system process) Datetime: 08/27/2016 23:21 NBP Sys/Adriana/Mean (mmHg): 110 (QS system process) : 59 (QS system process) : 80 (QS system process) Pulse: 86 (QS system process) LaborFlag: Antepartum (QS system process) Datetime: 08/27/2016 23:15 Monitor Mode: External; Palpation (Sweta Greenwood RN) Frequency (min): 1-3 (Sweta Greenwood RN) Quality: Moderate to Strong (Sweta Greenwood RN) Duration (sec): 50-70 (Sweta Greenwood RN) Pattern: Normal: <= 5 Contractions in 10 Minutes (Sweta Greenwood RN) Resting Tone (Palpate): Relaxed (Sweta Greenwood RN) Monitor Mode: External US (Sweta Greenwood RN) FHR Baseline Rate : 125 (Sweta Greenwood RN) FHR Baseline Changes: No Baseline Change (Sweta Greenwood RN) Variability: Moderate 6-25 bpm (Sweta Greenwood RN) Accelerations: 10X10 (Sweta Chalman, RN) Decelerations: None (Sweta Greenwood, RN) Datetime: 08/27/2016 23:05 NBP Sys/Adriana/Mean (mmHg): 107 (QS system process) : 69 (QS system process) : 83 (QS system process) Pulse: 100 (QS system process) LaborFlag: Antepartum (QS system process) Datetime: 08/27/2016 23:00 Monitor Mode: External; Palpation (Sweta Greenwood RN) Frequency (min): 2-3 (Sweta Greenwood RN) Quality: Moderate to Strong (Sweta Greenwood RN) Duration (sec): 50-80 (Sweta Greenwood RN) Pattern: Normal: <= 5 Contractions in 10 Minutes (Sweta Chalman, RN) Resting Tone (Palpate): Relaxed (Sweta Chalman, RN) Monitor Mode: External US (Sweta Sherieman, RN) FHR Baseline Rate : 125 (Sweta Sherieman, RN) Variability: Moderate 6-25 bpm (Sweta Chalman, RN) Decelerations: None (Sweta Chalman, RN) Datetime: 08/27/2016 22:58 Pitocin (milliunit): Pitocin Started (milliunits) @ 2 (Sweta Chalman, RN) Datetime: 08/27/2016 22:50 NBP Sys/Adriana/Mean (mmHg): 100 (QS system process) : 56 (QS system process) : 74 (QS system process) Pulse: 114 (QS system process) LaborFlag: Antepartum (QS system process) Datetime: 08/27/2016 22:45 Monitor Mode: External; Palpation (Sweta Sherieman, RN) Frequency (min): 2-3 (Sweta Chalman, RN) Quality: Moderate to Strong (Sweta Chalman, RN) Duration (sec): 40-60 (Sweta Chalman, RN) Pattern: Normal: <= 5 Contractions in 10 Minutes (Sweta Chalman, RN) Resting Tone (Palpate): Relaxed (Sweta Chalman, RN) Monitor Mode: External US (Sweta Chalman, RN) FHR Baseline Rate : 135 (Sweta Chalman, RN) FHR Baseline Changes: No Baseline Change (Sweta Chalman, RN) Variability: Moderate 6-25 bpm (Sweta Chalman, RN) Accelerations: 15X15 (Sweta Chalman, RN) Decelerations: None (Sweta Chalman, RN) Datetime: 08/27/2016 22:35 NBP Sys/Adriana/Mean (mmHg): 103 (QS system process) : 59 (QS system process) : 78 (QS system process) Pulse: 106 (QS system process) LaborFlag: Antepartum (QS system process) Datetime: 08/27/2016 22:30 Monitor Mode: External; Palpation (Sweta Chalman, RN) Frequency (min): 3-4 (Sweta Chalman, RN) Quality: Moderate to Strong (Sweta Chalman, RN) Duration (sec): 40-60 (Sweta Chalman, RN) Pattern: Normal: <= 5 Contractions in 10 Minutes (Sweta Sherieman, RN) Resting Tone (Palpate): Relaxed (Sweta Chalman, RN) Monitor Mode: External US (Sweta Chalman, RN) FHR Baseline Rate : 140 (Sweta Chalman, RN) Variability: Moderate 6-25 bpm (Sweta Chalman, RN) Decelerations: Early; Late (Sweta Chalman, RN) Datetime: 08/27/2016 22:23 Communication Comments: report called to Dr. Kraus. Provider aware that pt temp is 100.2 axillary. Per provider temp recheck in 1 hr. Pt also to start pitocon at 2 milliunits and increase by 2 milliunits q 15 min until labor is adequate (Sweta Greenwood RN) Datetime: 08/27/2016 22:20 NBP Sys/Adriana/Mean (mmHg): 110 (QS system process) : 59 (QS system process) : 78 (QS system process) Pulse: 99 (QS system process) Temperature (F): 100.2 (Sweta Greenwood RN) Temperature (C): 37.9 (QS system process) Temperature Route: Axillary (Sweta Greenwood RN) Patient Position/Activity: Right Lateral; Peanut Ball (Sweta Greenwood RN) LaborFlag: Antepartum (QS system process) Datetime: 08/27/2016 22:19 NBP Sys/Adriana/Mean (mmHg): 113 (QS system process) : 59 (QS system process) : 78 (QS system process) Pulse: 91 (QS system process) LaborFlag: Antepartum (QS system process) Datetime: 08/27/2016 22:18 NBP Sys/Adriana/Mean (mmHg): 115 (QS system process) : 58 (QS system process) : 77 (QS system process) Pulse: 118 (QS system process) LaborFlag: Antepartum (QS system process) Datetime: 08/27/2016 22:17 NBP Sys/Adriana/Mean (mmHg): 104 (QS system process) : 59 (QS system process) : 76 (QS system process) Pulse: 97 (QS system process) LaborFlag: Antepartum (QS system process) Datetime: 08/27/2016 22:16 NBP Sys/Adriana/Mean (mmHg): 112 (QS system process) : 65 (QS system process) : 81 (QS system process) Pulse: 99 (QS system process) LaborFlag: Antepartum (QS system process) Datetime: 08/27/2016 22:15 NBP Sys/Adriana/Mean (mmHg): 117 (QS system process) : 63 (QS system process) : 83 (QS system process) Pulse: 121 (QS system process) Dilatation (cm): 5.5 (Sweta Greenwood RN) Effacement (%): 90 (Sweta Greenwood RN) Station: 0 (Sweta Greenwood RN) Exam by: Srinivas Greenwood RN (Sweta Greenwood RN) LaborFlag: Antepartum (QS system process) Datetime: 08/27/2016 22:14 NBP Sys/Adriana/Mean (mmHg): 126 (QS system process) : 67 (QS system process) : 90 (QS system process) Pulse: 100 (QS system process) LaborFlag: Antepartum (QS system process) Datetime: 08/27/2016 22:13 NBP Sys/Adriana/Mean (mmHg): 114 (QS system process) : 64 (QS system process) : 84 (QS system process) Pulse: 111 (QS system process) Patient Care Comments: ponce cath inserted (Sweta Greenwood RN) LaborFlag: Antepartum (QS system process) Datetime: 08/27/2016 22:12 NBP Sys/Adriana/Mean (mmHg): 107 (QS system process) : 62 (QS system process) : 79 (QS system process) Pulse: 115 (QS system process) LaborFlag: Antepartum (QS system process) Datetime: 08/27/2016 22:11 NBP Sys/Adriana/Mean (mmHg): 121 (QS system process) : 72 (QS system process) : 90 (QS system process) Pulse: 102 (QS system process) LaborFlag: Antepartum (QS system process) Datetime: 08/27/2016 22:07 NBP Sys/Adriana/Mean (mmHg): 153 (QS system process) : 68 (QS system process) : 99 (QS system process) Pulse: 106 (QS system process) LaborFlag: Antepartum (QS system process) Datetime: 08/27/2016 22:06 NBP Sys/Adriana/Mean (mmHg): 144 (QS system process) : 74 (QS system process) : 100 (QS system process) Pulse: 94 (QS system process) LaborFlag: Antepartum (QS system process) Datetime: 08/27/2016 22:05 NBP Sys/Adriana/Mean (mmHg): 147 (QS system process) : 74 (QS system process) : 104 (QS system process) Pulse: 103 (QS system process) LaborFlag: Antepartum (QS system process) Datetime: 08/27/2016 22:04 NBP Sys/Adriana/Mean (mmHg): 142 (QS system process) : 71 (QS system process) : 102 (QS system process) Pulse: 94 (QS system process) Pulse: 99 (QS system process) SpO2 (%): 99 (QS system process) Epidural Procedure: Loading Dose (Sweta Greenwood RN) LaborFlag: Antepartum (QS system process) Datetime: 08/27/2016 22:03 NBP Sys/Adriana/Mean (mmHg): 155 (QS system process) : 76 (QS system process) : 109 (QS system process) Pulse: 88 (QS system process) Epidural Procedure: Test Dose (Sweta Greenwood RN) LaborFlag: Antepartum (QS system process) Datetime: 08/27/2016 22:02 NBP Sys/Adriana/Mean (mmHg): 152 (QS system process) : 87 (QS system process) : 112 (QS system process) Pulse: 92 (QS system process) Epidural Procedure: Cath Placed (Sweta Greenwood RN) LaborFlag: Antepartum (QS system process) Datetime: 08/27/2016 22:01 NBP Sys/Adriana/Mean (mmHg): 151 (QS system process) : 93 (QS system process) : 115 (QS system process) Pulse: 98 (QS system process) LaborFlag: Antepartum (QS system process) Datetime: 08/27/2016 22:00 NBP Sys/Adriana/Mean (mmHg): 157 (QS system process) : 97 (QS system process) : 120 (QS system process) Pulse: 93 (QS system process) Monitor Mode: External; Palpation (Sweta Greenwood RN) Frequency (min): 2-3 (Sweta Greenwood, RN) Quality: Moderate to Strong (Sweta Krystyna, RN) Duration (sec): 50-70 (Sweta Krystyna, RN) Pattern: Normal: <= 5 Contractions in 10 Minutes (Sweta Chalman, RN) Resting Tone (Palpate): Relaxed (Sweta Greenwood, RN) Monitor Mode: External US (Sweta Greenwood, RN) FHR Baseline Rate : 135 (Sweta Chalman, RN) FHR Baseline Changes: No Baseline Change (Sweta Chalman, RN) Variability: Moderate 6-25 bpm (Sweta Sherieman, RN) Accelerations: 15X15 (Sweta Sherieman, RN) Decelerations: None (Sweta Chalman, RN) LaborFlag: Antepartum (QS system process) Datetime: 08/27/2016 21:59 NBP Sys/Adriana/Mean (mmHg): 138 (QS system process) : 85 (QS system process) : 108 (QS system process) Pulse: 89 (QS system process) Pulse: 87 (QS system process) SpO2 (%): 99 (QS system process) LaborFlag: Antepartum (QS system process) Datetime: 08/27/2016 21:58 NBP Sys/Adriana/Mean (mmHg): 135 (QS system process) : 88 (QS system process) : 107 (QS system process) Pulse: 106 (QS system process) LaborFlag: Antepartum (QS system process) Datetime: 08/27/2016 21:54 Pulse: 96 (QS system process) SpO2 (%): 99 (QS system process) LaborFlag: Antepartum (QS system process) Datetime: 08/27/2016 21:51 Procedure Verify: Correct Patient Identity; Correct Side and Site are Marked; Accurate Procedure Consent Form; Agreement on Procedure to be Done; Correct Patient Position; Relevant Images and Results are Properly Labeled and Displayed (Sweta Greenwood RN) Anesthesia Plans: Epidural (Sweta Greenwood RN) Epidural Positioning: Sitting (Sweta Greenwood RN) Anesthesia Comments: Dr. Aguilar at bedside (Sweta Greenwood RN) Datetime: 08/27/2016 21:49 Anesthesia Comments: Dr. Aguilar called for epidural (Sweta Greenwood, JACKIE) Datetime: 08/27/2016 21:45 IV/Blood Work: New IV Bag Hung (Sweta Greenwood RN) Datetime: 08/27/2016 21:39 Dilatation (cm): 5.5 (Sweta Greenwood RN) Effacement (%): 90 (Sweta Greenwood RN) Station: -1 (Sweta Greenwood RN) Exam by: Srinivas Greenwood RN (Sweta Greenwood RN) Patient Care Comments: pt states that she has the urge to have a bowel movement and feels liike she is pushing involuntarily, SVE (Sweta Greenwood RN) Datetime: 08/27/2016 21:30 Monitor Mode: External; Palpation (Sweta Greenwood RN) Frequency (min): 2-3 (Sweta Greenwood RN) Quality: Moderate to Strong (Sweta Greenwood RN) Duration (sec): 50-70 (Sweta Greenwood RN) Pattern: Normal: <= 5 Contractions in 10 Minutes (Sweta Greenwood RN) Resting Tone (Palpate): Relaxed (Sweta Greenwood RN) Monitor Mode: External US (Sweta Greenwood RN) FHR Baseline Rate : 135 (Sweta Greenwood RN) Variability: Moderate 6-25 bpm (Sweta Greenwood RN) Accelerations: 10X10 (Sweta Greenwood RN) Decelerations: None (Sweta Greenwood RN) Datetime: 08/27/2016 21:07 NBP Sys/Adriana/Mean (mmHg): 153 (QS system process) : 89 (QS system process) : 112 (QS system process) Pulse: 90 (QS system process) Vital Sign Comments: pt in pain. will retake when pt returns to calm (Sweta Greenwood RN) LaborFlag: Antepartum (QS system process) Datetime: 08/27/2016 21:00 Monitor Mode: External; Palpation (Sweta Greenwood RN) Frequency (min): 2-4 (Sweta Greenwood RN) Quality: Moderate to Strong (Sweta Greenwood RN) Duration (sec): 50-70 (Sweta Greenwood RN) Pattern: Normal: <= 5 Contractions in 10 Minutes (Sweta Sherieman, RN) Resting Tone (Palpate): Relaxed (Sweta Chalman, RN) Monitor Mode: External US (Sweta Greenwood, RN) FHR Baseline Rate : 130 (Sweta Chalman, RN) FHR Baseline Changes: No Baseline Change (Sweta Sherieman, RN) Variability: Moderate 6-25 bpm (Sweta Sherieman, RN) Accelerations: 15X15 (Sweta Sherieman, RN) Decelerations: None (Sweta Chalman, RN) Datetime: 08/27/2016 20:57 I/O Interventions: Up to BR (Sweta Sherieman, RN) Datetime: 08/27/2016 20:48 Patient Care Comments: pt vomiting. RN at bedside for clean up and support (Sweta Chalman, RN) Datetime: 08/27/2016 20:45 Monitor Mode: External; Palpation (Sweta Chalman, RN) Frequency (min): 2-3 (Sweta Chalman, RN) Quality: Moderate to Strong (Sweta Chalman, RN) Duration (sec): 50-70 (Sweta Chalman, RN) Pattern: Normal: <= 5 Contractions in 10 Minutes (Sweta Chalman, RN) Resting Tone (Palpate): Relaxed (Sweta Chalman, RN) Monitor Mode: External US (Sweta Chalman, RN) FHR Baseline Rate : 130 (Sweta Chalman, RN) FHR Baseline Changes: No Baseline Change (Sweta Chalman, RN) Variability: Moderate 6-25 bpm (Sweta Chalman, RN) Accelerations: 15X15 (Sweta Chalman, RN) Decelerations: None (Sweta Chalman, RN) Datetime: 08/27/2016 20:30 Monitor Mode: External; Palpation (Sweta Chalman, RN) Frequency (min): 2-3 (Sweta Chalman, RN) Quality: Moderate to Strong (Sweta Chalman, RN) Duration (sec): 40-60 (Sweta Chalman, RN) Pattern: Normal: <= 5 Contractions in 10 Minutes (Sweta Sherieman, RN) Resting Tone (Palpate): Relaxed (Sweta Chalman, RN) Monitor Mode: External US (Sweta Greenwood, RN) FHR Baseline Rate : 130 (Sweta Sherieman, RN) FHR Baseline Changes: No Baseline Change (Sweta Sherieman, RN) Variability: Moderate 6-25 bpm (Sweta Chalman, RN) Decelerations: None (Sweta Chalman, RN) Datetime: 08/27/2016 20:19 Patient Position/Activity: Left Lateral; Peanut Ball (Sweta Krystyna, RN) Datetime: 08/27/2016 20:18 Patient Care Comments: pt give explaination of various pain managment options. pt undecided. pt will advise RN of choice when decided (Sweta Sherieman, RN) Datetime: 08/27/2016 20:15 Monitor Mode: External; Palpation (Sweta Greenwood RN) Frequency (min): 2-4 (Sweta Greenwood RN) Quality: Moderate to Strong (Sweta Greenwood, RN) Duration (sec): 50-60 (Sweta Greenwood, RN) Pattern: Normal: <= 5 Contractions in 10 Minutes (Sweta Greenwood RN) Resting Tone (Palpate): Relaxed (Sweta Greenwood, RN) Monitor Mode: External US (Sweta Greenwood RN) FHR Baseline Rate : 130 (Sweta Greenwood RN) FHR Baseline Changes: No Baseline Change (Sweta Greenwood, RN) Variability: Moderate 6-25 bpm (Sweta Chalman, RN) Decelerations: None (Sweta Chalman, RN) Datetime: 08/27/2016 20:10 Dilatation (cm): 4.5 (Sweta Greenwood RN) Effacement (%): 90 (Sweta Greenwood RN) Station: 0 (Sweta Greenwood RN) Exam by: Dr. Kraus (Sweta Greenwood RN) Membrane Status: Ruptured (Sweta Greenwood RN) Membranes Rupture Method: Artificial (Sweta Greenwood RN) Amniotic Fluid Color: Clear (Sweta Greenwood RN) Amniotic Fluid Amount: Small (Sweta Gerenwood RN) Amniotic Fluid Odor: Normal (Sweta Greenwood RN) Patient Care Comments: Dr. Kraus at bedside to eval pt. POC d/w pt. (Sweta Greenwood RN) Datetime: 08/27/2016 20:00 Monitor Mode: External; Palpation (Sweta Greenwood RN) Frequency (min): 3-4 (Sweta Greenwood RN) Quality: Moderate (Sweta Greenwood RN) Duration (sec): 40-60 (Sweta Greenwood RN) Pattern: Normal: <= 5 Contractions in 10 Minutes (Sweta Greenwood RN) Resting Tone (Palpate): Relaxed (Sweta Greenwood RN) Monitor Mode: External US (Sweta Greenwood RN) FHR Baseline Rate : 130 (Sweta Greenwood RN) Variability: Moderate 6-25 bpm (Sweta Greenwood RN) Decelerations: None (Sweta Greenwood RN) Datetime: 08/27/2016 19:45 Monitor Mode: External; Palpation (Sweta Chalman, RN) Frequency (min): 3 (Sweta Chalman, RN) Quality: Moderate (Sweta Chalman, RN) Duration (sec): 40-60 (Sweta Chalman, RN) Pattern: Normal: <= 5 Contractions in 10 Minutes (Sweta Chalman, RN) Resting Tone (Palpate): Relaxed (Sweta Chalman, RN) Monitor Mode: External US (Sweta Chalman, RN) FHR Baseline Rate : 140 (Sweta Chalman, RN) FHR Baseline Changes: No Baseline Change (Sweta Chalman, RN) Variability: Moderate 6-25 bpm (Sweta Chalman, RN) Accelerations: 15X15 (Sweta Chalman, RN) Decelerations: None (Sweta Chalman, RN) Datetime: 08/27/2016 19:32 Patient Care Comments: hot pack given for comfort measures (Sweta Chalman, RN) Datetime: 08/27/2016 19:30 Frequency (min): utd pattern (Sweta Chalman, RN) Monitor Mode: External US (Sweta Chalman, RN) FHR Baseline Rate : 140 (Sweta Chalman, RN) FHR Baseline Changes: No Baseline Change (Sweta Chalman, RN) Variability: Moderate 6-25 bpm (Sweta Chalman, RN) Accelerations: 15X15 (Sweta Chalman, RN) Decelerations: None (Sweta Chalman, RN) Datetime: 08/27/2016 19:27 NBP Sys/Adriana/Mean (mmHg): 116 (QS system process) : 72 (QS system process) : 86 (QS system process) Pulse: 78 (QS system process) Temperature (F): 98.5 (Sweta Chalman, RN) Temperature (C): 36.9 (QS system process) Temperature Route: Oral (Sweta Chalman, RN) LaborFlag: Antepartum (QS system process) Datetime: 08/27/2016 19:16 Level of Consciousness: Fully Conscious (Sweta Chalman, RN) DTR's/Clonus: DTRs 1+ (Sweta Chalman, RN) Headache: Denies (Sweta Chalman, RN) Breath Sounds, Left: Clear and Equal (Sweta Chalman, RN) Breath Sounds, Right: Clear and Equal (Sweta Chalman, RN) Nausea/Vomiting: Denies (Sweta Chalman, RN) RUQ Epigastric Pain: Denies (Sweta Chalman, RN) Datetime: 08/27/2016 19:15 Monitor Mode: External; Palpation (Sweta Chalman, RN) Frequency (min): 2-4 (Sweta Sherieman, RN) Quality: Moderate (Sweta Chalman, RN) Duration (sec): 40-70 (Sweta Chalman, RN) Pattern: Normal: <= 5 Contractions in 10 Minutes (Sweta Chalman, RN) Resting Tone (Palpate): Relaxed (Sweta Sherieman, RN) Monitor Mode: External US (Sweta Chalman, RN) FHR Baseline Rate : 140 (Sweta Sherieman, RN) FHR Baseline Changes: No Baseline Change (Sweta Chalman, RN) Variability: Moderate 6-25 bpm (Sweta Chalman, RN) Accelerations: 15X15 (Sweta Chalman, RN) Decelerations: None (Sweta Chalman, RN) Datetime: 08/27/2016 19:08 Additional Nursing Comments: report from RElsa Edwards RN and care assumed (Sweta Krystyna, RN) Datetime: 08/27/2016 19:07 Patient Care Comments: pt up to bathroom (Sweta Sherieman, RN) Datetime: 08/27/2016 19:00 Monitor Mode: External (Kelly Edwards, RN) Frequency (min): 2-5 (Kelly Marhefka, RN) Quality: Mild/Moderate (Kelly Edwards RN) Duration (sec): 40-160 (Kelly Edwards RN) Resting Tone (Palpate): Relaxed (Kelly Edwards RN) Monitor Mode: External US (Kelly Edwards RN) FHR Baseline Rate : 125 (Kelly Edwards RN) FHR Baseline Changes: No Baseline Change (Kelly Edwards RN) Variability: Moderate 6-25 bpm (Kelly Edwards RN) Accelerations: 15X15 (Kelly Edwards RN) Decelerations: None (Kelly Edwards RN)
--- NOTE | 2016-08-28 09:50 | PDOC PROGRESS REPORT ---
Subjective-OB Subjective: Post Delivery Day: 26 year old. Denies any needs at this time Physical Exam (OB) Vital Signs: Temp Pulse Resp BP Pulse Ox 97.9 F 70 18 111/62 100 08/28/16 08:00 08/28/16 08:00 08/28/16 08:00 08/28/16 08:00 08/28/16 08:00 Intake & Output 08/27/16 08/28/16 08/29/16 06:59 06:59 06:59 Weight 90.7 kg - Lochia Lochia Amount: Scant < 10 ml Lochia Color: Rubra/Red - Abdomen Description: Soft, Round Hernia Present: No Bowel Sounds: Normoactive Flatus Presence: Absent Stool: No Fundal Description: Firm, Midline Fundal Height: u/u - u/2 Objective-Diagnostic Laboratory: 08/27/16 18:02 08/27/16 08/27/16 08/27/16 14:15 18:02 18:02 WBC 7.0 RBC 3.74 Hgb 10.6 L Hct 30.9 L MCV 83 MCH 28.4 MCHC 34.4 RDW 13.3 Plt Count 236 Seg Neutrophils % 71.5 Lymphocytes % 19.1 Monocytes % 8.9 Eosinophils % 0.3 Basophils % 0.2 Absolute Neutrophils 5.0 Absolute Lymphocytes 1.3 Absolute Monocytes 0.6 Absolute Eosinophils 0.0 Absolute Basophils 0.0 Urine Color STRAW Urine Appearance CLEAR Urine pH 7.0 Ur Specific [place] 1.002 Urine Protein NEGATIVE Urine Glucose (UA) NEGATIVE Urine Ketones NEGATIVE Urine Blood NEGATIVE Urine Nitrite NEGATIVE Ur Leukocyte Esterase TRACE H Blood Type AB POSITIVE Antibody Screen NEGATIVE
[2016-08-28] MEDS: FERROUS SULFATE 325 MG TABLET PO SCH ×2 (10:48→17:10)
[2016-08-28] MEDS: DOCUSATE SODIUM 100 MG CAPSULE PO SCH ×2 (10:48→17:10)
[2016-08-28] MEDS: PRENATAL VITAMIN W-O CA NO5/FE FUMARATE/FA CAPSULE PO SCH (10:49)
[2016-08-28] MEDS: SENNOSIDES/DOCUSATE 8.6-50 MG 1 EACH TABLET PO SCH (10:49)
--- NOTE | 2016-08-28 18:01 | L&D General Admission ---
General Admit Datetime Report Generated by CPN: 08/28/2016 18:00 INFORMATION Patient Age: 26 (08/17/2016 09:37:QS system process) EDC: 08/26/2016 00:00 (08/25/2016 20:52:Corazon Martins RN) : 1 (08/25/2016 20:52:Corazon Martins RN) Para: 0 (08/25/2016 20:52:Corazon Martins RN) Term: 0 (08/25/2016 20:52:Kelly Edwards RN) : 0 (08/25/2016 20:52:Kelly Edwards RN) Spontaneous Abortions: 0 (08/25/2016 20:52:Kelly Edwards RN) Induced Abortions: 0 (08/25/2016 20:52:Kelly Edwards RN) Livin (08/25/2016 20:52:Kelly Edwards RN) Cesareans: 0 (08/25/2016 20:52:Kelly Edwards RN) VBACs: 0 (08/25/2016 20:52:Kelly Edwards RN) Ectopic: 0 (08/25/2016 20:52:Kelly Edwards RN) Multiple Births: 0 (08/25/2016 20:52:Kelly Edwards RN) Baby, Number in Womb: 1 (08/25/2016 20:52:Corazon Martins RN) CARE Primary Pensions Retirement Plan Specialist: [facility] (08/25/2016 20:52:Corazon Martins RN) Pensions Retirement Plan Specialist Other: [facility] (08/25/2016 20:52:Corazon Martins RN) Month of 1st Visit: 04/07/16 (08/25/2016 20:52:Candace Carlos RN) Adequate Care: Yes (08/25/2016 20:52:Corazon Martins RN) Prepregnancy Weight (lb): 156 (08/25/2016 20:52:Kelly Edwards RN) Prepregnancy Weight (kg): 70.9 (08/25/2016 20:52:QS system process) Height (in): 67 (08/28/2016 05:32:QS system process) ALLERGIES Medication Allergy: No (08/25/2016 20:52:Corazon Martins RN) Medication Allergies: No Known Allergies (08/25/2016) (08/25/2016 21:17:QS system process) Latex Allergy: No Latex Allergies (08/25/2016 20:52:Corazon Martins RN) Environmental Allergies: seasonal (08/25/2016 20:52:oCrazon Martins RN) COMMUNICATION Primary Language: Japanese (08/25/2016 20:52:Corazon Martins RN) Medical Tx Preferred Language: Japanese (08/25/2016 20:52:Kelly Edwards RN) DEMOGRAPHICS Address: [address] [place] [id number] (08/17/2016 09:37:QS system process) Zipcode: [address] (08/17/2016 09:37:QS system process) Home (08/17/2016 09:37:QS system process) N: [id number] (08/17/2016 09:37:QS system process) Next of Kin Name: KARTHIK ADAMS (08/17/2016 09:37:QS system process) Next of Kin (08/17/2016 09:37:QS system process) Next of Kin Relationship: OR (08/17/2016 09:37:QS system process) Date of : 1990 (08/17/2016 09:37:QS system process) Marital Status: Single (08/17/2016 09:37:QS system process) Sex: Female (08/17/2016 09:37:QS system process) Race: (08/17/2016 09:37:QS system process) Ethnicity: Non- or (08/17/2016 09:37:QS system process) Voodoo: Restorationism (08/17/2016 09:37:QS system process) DRUG AND ALCOHOL USE Alcohol: No (08/25/2016 20:52:Corazon Martins RN) Cigarettes: Former Smoker. [id number] (08/25/2016 20:52:Corazon Martins RN) Marijuana: No (08/25/2016 20:52:Corazon Martins RN) Cocaine: No (08/25/2016 20:52:Corazon Martins RN) Other Illicit Drugs: No (08/25/2016 20:52:Corazon Martins RN) VACCINE HISTORY Influenza Vaccine: Yes (08/25/2016 20:52:Kelly Edwards RN) Influenza Date: 05/2016 (Annotations: Data stored by [facility] on behalf of user) (08/25/2016 20:52:Kelly Edwards RN) Tdap Vaccine: Yes (08/25/2016 20:52:Corazon Martins RN) Toilet Attendant: [facility] (08/25/2016 20:52:Kelly Edwards RN) Feeding Preference: Breast (08/25/2016 20:52:Corazon Martins RN) Benefit of Breast Feed Discussed: Yes (08/25/2016 20:52:Corazon Martins RN) Circumcision: Yes (08/25/2016 20:52:Corazon Martins RN) Classes Attended: Yes (08/25/2016 20:52:Corazon Martins RN) Tubal Ligation: No (08/25/2016 20:52:Corazon Martins RN) Tubal Authorization Signed: N/A (08/25/2016 20:52:Corazon Martins RN) Consent: N/A (08/25/2016 20:52:Corazon Martins RN) Consent Signed: N/A (08/25/2016 20:52:Corazon Martins RN) Pain Management Plans: Natural (08/25/2016 20:52:Corazon Martins RN) Plans for Labor and Delivery: None (08/25/2016 20:52:Kelly Edwards RN) Support Person: Karthik Rojas (08/25/2016 20:52:Corazon Martins RN) Support Person Relationship: (08/25/2016 20:52:Corazon Martins RN) Cultural/Spritual Practice: No (08/25/2016 20:52:Corazon Martins RN) Spir/Cult Dietary Needs: No (08/25/2016 20:52:Corazon Martins RN) LIVING SITUATION/DISCHARGE PLAN Living Arrangements: House (08/25/2016 20:52:Corazon Martins RN) Adequate Access to:: Electric; Heat; Refrigeration; Plumbing/Running water; Phone; Transportation (08/25/2016 20:52:Corazon Martins RN) WIC Program: Yes (08/25/2016 20:52:Corazon Martins RN) Discharge Folder Machine Person: Karthik Rojas (08/25/2016 20:52:Corazon Martins RN) Person to Help after Discharge: Karthik Rojas (08/25/2016 20:52:Corazon Martins RN) Currently Using Commun Resources: Yes (08/25/2016 20:52:Corazon Martins RN) Specify Current Resource Used: Medicaid (08/25/2016 20:52:Corazon Martins RN) Outside Agency/Feeder Catcher: Yes (08/25/2016 20:52:Kelly Edwards RN) Car Seat for Discharge: Yes (08/25/2016 20:52:Corazon Martins RN) Adoption Requested: No (08/25/2016 20:52:Corazon Martins RN) Pt Contact w/infant Post : N/A (08/25/2016 20:52:Corazon Martins RN) LABS Blood Type: AB Positive (08/25/2016 20:52:Candace Carlos RN) Antibody Screen: negative (08/25/2016 20:52:Candace Carlos RN) Hemoglobin: 10.6 L (08/27/2016 18:02:QS system process) Hematocrit: 30.9 L (08/27/2016 18:02:QS system process) MCV: 83 (08/27/2016 18:02:QS system process) Group Beta Strep: negative (08/25/2016 20:52:Candace Carlos RN) Gonorrhea: Negative (08/25/2016 20:52:Candace Carlos RN) Chlamydia: Negative (08/25/2016 20:52:Candace Carlos RN) RPR/VDRL: Nonreactive (08/25/2016 20:52:Candace Carlos RN) HIV Results: non-reactive (08/25/2016 20:52:Candace Carlos RN) Hepatitis B: Negative (08/25/2016 20:52:Candace Carlos RN) Rubella: Non-Immune (08/25/2016 20:52:Candace Carlos RN) OB/PREVIOUS HISTORY Current Procedures: Ultrasound; NST (08/25/2016 20:52:Corazon Martins RN) History of Previous : No (08/25/2016 20:52:Corazon Martins RN) History of Gestational Diabetes: No (08/25/2016 20:52:Corazon Martins RN) History of PIH: No (08/25/2016 20:52:Corazon Martins RN) History of Incompetent Cervix: No (08/25/2016 20:52:Corazon Martins RN) History of Placenta Previa/Abrup: No (08/25/2016 20:52:Corazon Martins RN) History of Macrosomia: No (08/25/2016 20:52:Corazon Martins RN) History of IUGR: No (08/25/2016 20:52:Corazon Martins RN) History of Hemorrhage: No (08/25/2016 20:52:Corazon Martins RN) History of Loss/Stillborn: No (08/25/2016 20:52:Corazon Martins RN) History of : No (08/25/2016 20:52:Corazon Martisn RN) History of D (Rh) Sensitization: No (08/25/2016 20:52:Corazon Martins RN) History Recurrent Loss/Stillborn: No (08/25/2016 20:52:Corazon Martins RN) History Depression/PP Depression: No (08/25/2016 20:52:Corazon Martins RN) History of Uterine Anomaly/BENNY: No (08/25/2016 20:52:Corazon Martins RN) History of Infertility: No (08/25/2016 20:52:Corazon Martins RN) History of ART Treatment: No (08/25/2016 20:52:Corazon Martins RN) History of BENNY: No (08/25/2016 20:52:Corazon Martins RN) Comments Obstetrical History: G1PO- Current (08/25/2016 20:52:Kelly Edwards RN) MEDICAL HISTORY Med Hx Diabetes: No (08/25/2016 20:52:Corazon Martins RN) Med Hx Hypertension: No (08/25/2016 20:52:Corazon Martins RN) Med Hx Heart Disease: No (08/25/2016 20:52:Corazon Martins RN) Med Hx Autoimmune Disorder: No (08/25/2016 20:52:Corazon Martins RN) Med Hx Kidney Disease/UTI: No (08/25/2016 20:52:Corazon Martins RN) Med Hx Neurologic/Epilepsy: No (08/25/2016 20:52:Corazon Martins RN) Med Hx Psychiatric Disorders: No (08/25/2016 20:52:Corazon Martins RN) Med Hx Hepatitis/Liver Disease: No (08/25/2016 20:52:Corazon Martins RN) Med Hx Varicosities/Phlebitis: No (08/25/2016 20:52:Corazon Martins RN) Med Hx Thyroid Dysfunction: No (08/25/2016 20:52:Corazon Martins RN) Med Hx Trauma/Violence: No (08/25/2016 20:52:Corazon Martins RN) Med Hx Blood Transfusion: No (08/25/2016 20:52:Corazon Martins RN) Med Hx Pulmonary (Asthma,TB): No (08/25/2016 20:52:Corazon Martins RN) Med Hx Breast: No (08/25/2016 20:52:Corazon Martins RN) Med Hx SAMPLE TESTER GRINDER Surgery: No (08/25/2016 20:52:Corazon Martins RN) Med Hx Hospitalization/Surgery: No (08/25/2016 20:52:Corazon Martins RN) Med Hx Anesthetic Complications: No (08/25/2016 20:52:Corazon Martins RN) Med Hx Abnormal Pap Smear: No (08/25/2016 20:52:Corazon Martins RN) Other Medical Diseases: No (08/25/2016 20:52:Corazon Martins RN) Med Hx Significant Family Hx: No (08/25/2016 20:52:Corazon Martins RN) INFECTIOUS HISTORY Inf Hx Gonorrhea: No (08/25/2016 20:52:Corazon Martins RN) Inf Hx Chlamydia: No (08/25/2016 20:52:Corazon Martins RN) Inf Hx Syphilis: No (08/25/2016 20:52:Corazon Martins RN) Inf Hx HIV/AIDS: No (08/25/2016 20:52:Corazon Martins RN) Inf Hx Human Papilloma Virus: No (08/25/2016 20:52:Corazon Martins RN) Inf Hx Pt/Partner Genital Herpes: No (08/25/2016 20:52:Corazon Martins RN) Inf Hx Tuberculosis/Exposure: No (08/25/2016 20:52:Corazon Martins RN) Inf Hx Hepatitis B,C: No (08/25/2016 20:52:Corazon Martins RN) Inf Hx Rash or Viral Illness: No (08/25/2016 20:52:Corazon Martins RN) GENETIC HISTORY Gen Hx Age >=35 at CINTHYA: No (08/25/2016 20:52:Corazon Martins RN) Gen Hx Thalassemia: No (08/25/2016 20:52:Corazon Martins RN) Gen Hx Congenital Heart Defect: No (08/25/2016 20:52:Corazon Martins RN) Gen Hx Neural Tube Defect: No (08/25/2016 20:52:Corazon Martins RN) Gen Hx Down's Syndrome: No (08/25/2016 20:52:Corazon Martins RN) Gen Hx Javier-Sachs: No (08/25/2016 20:52:Corazon Martins RN) Gen Hx Pineda: No (08/25/2016 20:52:Corazon Martins RN) Gen Hx Familial Dysautonomia: No (08/25/2016 20:52:Corazon Martins RN) Gen Hx Sickle Cell Disease/Trait: No (08/25/2016 20:52:Corazon Martins RN) Gen Hx Hemophilia/Blood Disorder: No (08/25/2016 20:52:Corazon Martins RN) Gen Hx Muscular Dystrophy: No (08/25/2016 20:52:Corazon Martins RN) Gen Hx Cystic Fibrosis: No (08/25/2016 20:52:Corazon Martins RN) Gen Hx Huntingtons Chorea: No (08/25/2016 20:52:Corazon Martins RN) Gen Hx Mental Retardation/Autism: No (08/25/2016 20:52:Corazon Martins RN) Gen Hx Tested for Fragile X: No (08/25/2016 20:52:Corazon Martins RN) Gen Hx Other Inher/Chromosomal: No (08/25/2016 20:52:Corazon Martins RN) Gen Hx Maternal Metabolic DO: No (08/25/2016 20:52:Corazon Martins RN) Gen Hx Pt Father or FOB Defect: No (08/25/2016 20:52:Corazon Martins RN) Gen Hx Other Genetic History: No (08/25/2016 20:52:Corazon Martins RN) Gen Hx Drugs/Meds since LMP: No (08/25/2016 20:52:Corazon Martins RN)
--- NOTE | 2016-08-28 18:16 | L&D Care Plan ---
LD CARE PLANS Datetime Report Generated by CPN: 08/28/2016 18:15 Datetime: 08/27/2016 17:47 Pain State: Risk For (Gloria Olivo RN) Related To: Labor and Delivery Process; Surgical Procedure; Complication(s) of ; Disease Process; Treatment and Procedures; Post (Gloria Olivo RN) Goal(s): Patients Pain will be Assessed and Managed; Patient will Verbalize Adequate Relief of Pain or the Ability to [place] with Current Pain (Gloria Olivo RN) Interventions: Assess Pain Severity on Scale of 0 (None) to 5 (Severe); Assess Type, Location and Intensity of Pain Each Time Client Reports Discomfort and Notify Provider if Unusal Pain Develops; Encourage Proper Breathing and Relaxation Techniques; Offer Alternatives Such as Repositioning, Calm Environment, Massages, Diversional Activities, Ice Pack, Splinting, and Ambulation; Administer Analgesics as Ordered; Assist with Epidural Placement as Appropriate; Evaluate Therapeutic Effectiveness of Medication and Treatments (Gloria Olivo RN) Outcome: Patient will Report Absence or Relief of Pain Consistent with Established Pain Goal (Gloria Olivo RN) Status: Ongoing (Gloria Olivo RN) Outcome: Patient will have a Decrease in Signs and Symptoms of Discomfort (Gloria Olivo RN) Status: Ongoing (Gloria Olivo RN) Outcome: Pain will be Controlled During Procedures (Gloria Olivo RN) Status: Ongoing (Gloria Olivo RN) Anxiety State: Risk For (Gloria Olivo RN) Related To: Labor and Delivery Process; Surgical Procedure; Perceived or Actual Threat to ; Fear of Unknown; Situational Crisis; Medical Interventions; Significant Life Event (Gloria Olivo RN) Goal(s): Patient will have Decreased Anxiety and be able to Function at Acceptable Levels (Gloria Olivo RN) Interventions: Assess Verbal and Nonverbal Behavioral Indicators of Anxiety; Assist Patient to Identify and Verbalize Symptoms of Anxiety; Identify and Demonstrate Techniques to Control Anxiety; Assist Patient with Coping Mechanisms to Manage Anxiety; Provide Theraputic Touch for the Patient; Explain to Patient, Using a Calm Reassuring Approach and Nonmedical Terms, All Activities, Procedures, and Concerns; Instruct Patient and Family about Post Discharge Care, Limitations, Symptoms to Report and Resources Available (Gloria Olivo RN) Outcome: Patient will Identify, Verbalize and Demonstrate Techniques to Control Anxiety (Gloria Olivo RN) Status: Ongoing (Gloria Olivo RN) Outcome: Patient's Posture, Facial Expressions, Gestures and Activity Level will Reflect Decreased Anxiety (Gloria Olivo RN) Status: Ongoing (Gloria Olivo RN) Outcome: Patient will Verbalize a Sense of Control and/or Acceptance of the Situation (Gloria Olivo RN) Status: Ongoing (Gloria Olivo RN) Outcome: Patient will Identify and Utilize Support Person (Gloria Olivo RN) Status: Ongoing (Gloria Olivo RN) Status: Ongoing (Gloria Olivo RN) Knowledge Deficit State: Risk For (Gloria Olivo RN) Related To: Labor and Delivery Process; Surgical Procedures; Treatment and Procedures; Impending Alterations in Family Dynamics; Feeding and Care; Community Resources and Available Support Mechanisms (Gloria Olivo RN) Goal(s): Patient will Accurately Verbalize Understanding of Plan of Care and Treatment; Patient and Family will Accurately Verbalize Understanding of the Disease Process (Gloria Olivo RN) Interventions: Assess Motivation and Willingness of Patient/Family to Learn; Assess Preferred Learning Mode: One to One Instruction, Reading, Videos, Group Discussion or Demonstration; Assess Barriers to Learning: Pain, Emotional State, Language Barrier, Cognitive Impairment, Visual or Hearing Deficits; Assess Patient and Family Knowledge of Disease Process, Medications and Treatment; Discuss Therapy and/or Treatment Options, Describe Rationale Behind Management, Therapy and Treatment Recommendations; Instruct Patient and Family on Signs and Symptoms to Report; Instruct Patient and Family on Medication Effects and Side Effects; Provide Appropriate and Timely Education Using Multiple Techniques; Provide Patient and Family with Support Group Information and Resources; Give Clear and Thorough Explanations and Demonstrations (Gloria Olivo RN) Outcome: Patient and Family will Verbalize Understanding of Condition, Treatment and Signs and Symptoms to Report (Gloria Olivo RN) Status: Ongoing (Gloria Olivo RN) Outcome: Patient will Identify Perceived Learning Needs and Express Motivation to Learn (Gloria Olivo RN) Status: Ongoing (Gloria Olivo RN) Outcome: Patient will Verbalize Understanding of Desired Content, and/or Performs Desired Skill Prior to Discharge (Gloria Olivo RN) Status: Ongoing (Gloria Olivo RN) Infection State: Risk For (Gloria Olivo RN) Related To: Surgical Procedures; Prolonged Labor or Induction; Premature/Prolonged Rupture of Membranes; Invasive Procedures; Altered Tissue Integrity (Gloria Olivo RN) Goal(s): The Patient will be Free of Infection, Vital Signs Stable and Lab Work within Normal Parameters (Gloria Olivo RN) Interventions: Instruct and Reinforce Proper Handwashing, Hygiene, and Care Techniques to Patient and Family; Monitor Vital Signs; Monitor Patient for the Following Signs of Infection: Fever, Abdominal Tenderness, Unusual Discharge; Monitor Aminiotic Fluid, Urine and Lochia for Color and Odor; Observe Wounds, Incisions and Invasive Line Sites for Redness, Drainage and Edema; Assess IV Sites per Hospital Policy; Monitor Lab and Test Results and Notify Provider of Abnormal Findings; Assess Nutritional Status and Promote Good Nutrition (Gloria Olivo RN) Outcome: Patient will Remain Free of Infection (Gloria Olivo RN) Status: Ongoing (Gloria Olivo RN) Outcome: Infection will be Recognized Early to Allow for Prompt Treatment (Gloria Olivo RN) Status: Ongoing (Gloria Olivo RN) Outcome: Patient will have Vital Signs Within Expected Range (Gloria Olivo RN) Status: Ongoing (Gloria Olivo RN) Datetime: 08/27/2016 17:46 Pain State: Risk For (Gloria Olivo RN) Related To: Labor and Delivery Process; Surgical Procedure; Complication(s) of ; Disease Process; Treatment and Procedures; Post (Gloria Olivo RN) Goal(s): Patients Pain will be Assessed and Managed; Patient will Verbalize Adequate Relief of Pain or the Ability to [place] with Current Pain (Gloria Olivo RN) Interventions: Assess Pain Severity on Scale of 0 (None) to 5 (Severe); Assess Type, Location and Intensity of Pain Each Time Client Reports Discomfort and Notify Provider if Unusal Pain Develops; Encourage Proper Breathing and Relaxation Techniques; Offer Alternatives Such as Repositioning, Calm Environment, Massages, Diversional Activities, Ice Pack, Splinting, and Ambulation; Administer Analgesics as Ordered; Assist with Epidural Placement as Appropriate; Evaluate Therapeutic Effectiveness of Medication and Treatments (Gloria Olivo RN) Outcome: Patient will Report Absence or Relief of Pain Consistent with Established Pain Goal (Gloria Olivo RN) Status: Ongoing (Gloria Olivo RN) Outcome: Patient will have a Decrease in Signs and Symptoms of Discomfort (Gloria Olivo RN) Status: Ongoing (Gloria Olivo RN) Outcome: Pain will be Controlled During Procedures (Gloria Olivo RN) Status: Ongoing (Gloria Olivo RN) Anxiety State: Risk For (Gloria Olivo RN) Related To: Labor and Delivery Process; Surgical Procedure; Perceived or Actual Threat to ; Fear of Unknown; Situational Crisis; Medical Interventions; Significant Life Event (Gloria Olivo RN) Goal(s): Patient will have Decreased Anxiety and be able to Function at Acceptable Levels (Gloria Olivo RN) Interventions: Assess Verbal and Nonverbal Behavioral Indicators of Anxiety; Assist Patient to Identify and Verbalize Symptoms of Anxiety; Identify and Demonstrate Techniques to Control Anxiety; Assist Patient with Coping Mechanisms to Manage Anxiety; Provide Theraputic Touch for the Patient; Explain to Patient, Using a Calm Reassuring Approach and Nonmedical Terms, All Activities, Procedures, and Concerns; Instruct Patient and Family about Post Discharge Care, Limitations, Symptoms to Report and Resources Available (Gloria Olivo RN) Outcome: Patient will Identify, Verbalize and Demonstrate Techniques to Control Anxiety (Gloria Olivo RN) Status: Ongoing (Gloria Olivo RN) Outcome: Patient's Posture, Facial Expressions, Gestures and Activity Level will Reflect Decreased Anxiety (Gloria Olivo RN) Status: Ongoing (Gloria Olivo RN) Outcome: Patient will Verbalize a Sense of Control and/or Acceptance of the Situation (Gloria Olivo RN) Status: Ongoing (Gloria Olivo RN) Outcome: Patient will Identify and Utilize Support Person (Gloria Olivo RN) Status: Ongoing (Gloria Olivo RN) Status: Ongoing (Gloria Olivo, JACKIE) Knowledge Deficit State: Risk For (Gloria Olivo RN) Related To: Labor and Delivery Process; Surgical Procedures; Treatment and Procedures; Impending Alterations in Family Dynamics; Feeding and Care; Community Resources and Available Support Mechanisms (Gloria Olivo RN) Goal(s): Patient will Accurately Verbalize Understanding of Plan of Care and Treatment; Patient and Family will Accurately Verbalize Understanding of the Disease Process (Gloria Olivo RN) Interventions: Assess Motivation and Willingness of Patient/Family to Learn; Assess Preferred Learning Mode: One to One Instruction, Reading, Videos, Group Discussion or Demonstration; Assess Barriers to Learning: Pain, Emotional State, Language Barrier, Cognitive Impairment, Visual or Hearing Deficits; Assess Patient and Family Knowledge of Disease Process, Medications and Treatment; Discuss Therapy and/or Treatment Options, Describe Rationale Behind Management, Therapy and Treatment Recommendations; Instruct Patient and Family on Signs and Symptoms to Report; Instruct Patient and Family on Medication Effects and Side Effects; Provide Appropriate and Timely Education Using Multiple Techniques; Provide Patient and Family with Support Group Information and Resources; Give Clear and Thorough Explanations and Demonstrations (Gloria Olivo RN) Outcome: Patient and Family will Verbalize Understanding of Condition, Treatment and Signs and Symptoms to Report (Gloria Olivo RN) Status: Ongoing (Gloria Olivo RN) Outcome: Patient will Identify Perceived Learning Needs and Express Motivation to Learn (Gloria Olivo RN) Status: Ongoing (Gloria Olivo RN) Outcome: Patient will Verbalize Understanding of Desired Content, and/or Performs Desired Skill Prior to Discharge (Gloria Olivo RN) Status: Ongoing (Gloria Olivo RN) Infection State: Risk For (Gloria Olivo RN) Related To: Surgical Procedures; Prolonged Labor or Induction; Premature/Prolonged Rupture of Membranes; Invasive Procedures; Altered Tissue Integrity (Gloria Olivo RN) Goal(s): The Patient will be Free of Infection, Vital Signs Stable and Lab Work within Normal Parameters (Gloria Olivo RN) Interventions: Instruct and Reinforce Proper Handwashing, Hygiene, and Care Techniques to Patient and Family; Monitor Vital Signs; Monitor Patient for the Following Signs of Infection: Fever, Abdominal Tenderness, Unusual Discharge; Monitor Aminiotic Fluid, Urine and Lochia for Color and Odor; Observe Wounds, Incisions and Invasive Line Sites for Redness, Drainage and Edema; Assess IV Sites per Hospital Policy; Monitor Lab and Test Results and Notify Provider of Abnormal Findings; Assess Nutritional Status and Promote Good Nutrition (Gloria Olivo RN) Outcome: Patient will Remain Free of Infection (Gloria Olivo RN) Status: Ongoing (Gloria Olivo RN) Outcome: Infection will be Recognized Early to Allow for Prompt Treatment (Gloria Olivo RN) Status: Ongoing (Gloria Olivo RN) Outcome: Patient will have Vital Signs Within Expected Range (Gloria Olivo RN) Status: Ongoing (Gloria Olivo RN)
[2016-08-29] MEDS: IBUPROFEN 800 MG TABLET PO SCH ×3 (05:05→21:33)
--- NOTE | 2016-08-29 06:01 | L&D Current Admission ---
Current Admit Datetime Report Generated by CPN: 08/29/2016 06:00 ADMISSION INFORMATION Current Admit Date/Time: 08/27/2016 17:49 (08/27/2016 14:43:Kelly Edwards RN) Reason for Admission: Onset of Labor (08/27/2016 14:43:Kelly Edwards RN) Chief Complaint: Contractions (08/27/2016 14:43:Kelly Edwards RN) EGA per Dates: 40.1 (08/27/2016 14:43:QS system process) Method of Arrival: Ambulatory (08/27/2016 14:43:Kelly Edwards RN) Admitted From: Home (08/27/2016 14:43:Kelly Edwards RN) Reason for Induction: Not Applicable (08/27/2016 14:43:Kelly Edwards RN) Records Available: Yes (08/27/2016 14:43:Kelly Edwards RN) General Admission Information: Reviewed; Updated; Confirmed (08/27/2016 14:43:Kelly Edwards RN) General Admission Reviewed By: Bubba Edwards RN (08/27/2016 14:43:Kelly Edwards RN) BELONGINGS/ADVANCED DIRECTIVES Valuables/Personal Effects: Purse/Wallet (08/27/2016 14:43:Kelly Edwards RN) Other Belongings: See Belongins sheet (08/27/2016 14:43:Kelly Edwards RN) Disposition of Belongings: Kept with Patient (08/27/2016 14:43:Kelly Edwards RN) Advance Direct for Healthcare: No, and Wants No Information (08/27/2016 14:43:Kelly Edwards RN) Durable Power of Construction Safety Consultant: No (08/27/2016 14:43:Kelly Edwards RN) Living Will: No (08/27/2016 14:43:Kelly Edwards RN) Organ Donor: Yes (08/27/2016 14:43:Kelly Edwards RN) Pt Rights Information Given: Yes (08/27/2016 14:43:Kelly Edwards RN) Pt Understands Pt Rights: Yes (08/27/2016 14:43:Kelly Edwards RN) LEARNING ASSESSMENT Knowledge Level: Understands L_D Process; Understands Care Activities; Had Pre-Hospital Education; Understands Diagnosis (08/27/2016 14:43:Kelly Edwards RN) Barriers to Learning: None (08/27/2016 14:43:Kelly Edwards RN) Learning Readiness: Motivated (08/27/2016 14:43:Kelly Edwards RN) Learns Best By: 1 to 1 Instruction (08/27/2016 14:43:Kelly Edwards RN) Learning Needs: Labor and Delivery Process; Pain Management; Symptoms to Report; Treatment Plan; Medication; Diagnosis; Nutrition; Equipment; Infant Care; Community Resources (08/27/2016 14:43:Kelly Edwards RN) DOMESTIC VIOLANCE SCREENING Dom Viol Threatened/Hurt: No (08/27/2016 14:43:Kelly Edwards RN) Hx of Abuse/Neglect past 2yrs: No (08/27/2016 14:43:Kelly Edwards RN) Feel Unsafe Going Home: No (08/27/2016 14:43:Kelly Edwards RN) Addt'l Observ Indicating Abuse: No (08/27/2016 14:43:Kelly Edwards RN) Reason Unable to Complete Screen: N/A, Screen Completed (08/27/2016 14:43:Kelly Edwards RN) Considered Personal Harm/Suicide: No (08/27/2016 14:43:Kelly Edwards RN) NUTRITIONAL/FUNCTIONAL SCREENING Problem with Appetite >5 Days: No (08/27/2016 14:43:Kelly Edwards RN) Chew/Swallow Difficulties: No (08/27/2016 14:43:Kelly Edwards RN) Inappropriate Wt Gain/Loss: No (08/27/2016 14:43:Kelly Edwards RN) Presence Skin Breakdown/Ulcer: No (08/27/2016 14:43:Kelly Edwards RN) Special Diet: No (08/27/2016 14:43:Kelly Edwards RN) Pt Requests Assembler Brazer Visit: No (08/27/2016 14:43:Kelly Edwards RN) Hx of Any of the Following?: N/A (08/27/2016 14:43:Kelly Edwards RN) New Diagnosis of: N/A (08/27/2016 14:43:Kelly Edwards RN) Requires Assist w/Ambulation: No (08/27/2016 14:43:Kelly Edwards RN) Uses Assist Device to Ambulate: No (08/27/2016 14:43:Kelly Edwards RN) Pt Requires Help w/ADL's: No (08/27/2016 14:43:Kelly Edwards RN)
--- NOTE | 2016-08-29 06:01 | L&D General Admission ---
General Admit Datetime Report Generated by CPN: 08/29/2016 06:00 INFORMATION Patient Age: 26 (08/17/2016 09:37:QS system process) EDC: 08/26/2016 00:00 (08/25/2016 20:52:Corazon Martins RN) : 1 (08/25/2016 20:52:Corazon Martins RN) Para: 0 (08/25/2016 20:52:Corazon Martins RN) Term: 0 (08/25/2016 20:52:Kelly Edwards RN) : 0 (08/25/2016 20:52:Kelly Edwards RN) Spontaneous Abortions: 0 (08/25/2016 20:52:Kelly Edwards RN) Induced Abortions: 0 (08/25/2016 20:52:Kelly Edwards RN) Livin (08/25/2016 20:52:Kelly Edwards RN) Cesareans: 0 (08/25/2016 20:52:Kelly Edwards RN) VBACs: 0 (08/25/2016 20:52:Kelly Edwards RN) Ectopic: 0 (08/25/2016 20:52:Kelly Edwards RN) Multiple Births: 0 (08/25/2016 20:52:Kelly Edwards RN) Baby, Number in Womb: 1 (08/25/2016 20:52:Corazon Martins RN) CARE Primary Estimation Manager: [facility] (08/25/2016 20:52:Corazon Martins RN) Estimation Manager Other: [facility] (08/25/2016 20:52:Corazon Martins RN) Month of 1st Visit: 04/07/16 (08/25/2016 20:52:Candace Carlos RN) Adequate Care: Yes (08/25/2016 20:52:Corazon Martins RN) Prepregnancy Weight (lb): 156 (08/25/2016 20:52:Kelly Edwards RN) Prepregnancy Weight (kg): 70.9 (08/25/2016 20:52:QS system process) Height (in): 67 (08/28/2016 05:32:QS system process) ALLERGIES Medication Allergy: No (08/25/2016 20:52:Corazon Martins RN) Medication Allergies: No Known Allergies (08/25/2016) (08/25/2016 21:17:QS system process) Latex Allergy: No Latex Allergies (08/25/2016 20:52:Corazon Martins RN) Environmental Allergies: seasonal (08/25/2016 20:52:Corazon Martins RN) COMMUNICATION Primary Language: Bermudian (08/25/2016 20:52:Corazon Martins RN) Medical Tx Preferred Language: Bermudian (08/25/2016 20:52:Kelly Edwards RN) DEMOGRAPHICS Address: [address] [place] [id number] (08/17/2016 09:37:QS system process) Zipcode: [address] (08/17/2016 09:37:QS system process) Home (08/17/2016 09:37:QS system process) N: [phone] (08/17/2016 09:37:QS system process) Next of Kin Name: KARTHIK ADAMS (08/17/2016 09:37:QS system process) Next of Kin (08/17/2016 09:37:QS system process) Next of Kin Relationship: OR (08/17/2016 09:37:QS system process) Date of : 1990 (08/17/2016 09:37:QS system process) Marital Status: Single (08/17/2016 09:37:QS system process) Sex: Female (08/17/2016 09:37:QS system process) Race: (08/17/2016 09:37:QS system process) Ethnicity: Non- or (08/17/2016 09:37:QS system process) Samaritan: Islam (08/17/2016 09:37:QS system process) DRUG AND ALCOHOL USE Alcohol: No (08/25/2016 20:52:Corazon Martins RN) Cigarettes: Former Smoker. [id number] (08/25/2016 20:52:Corazon Martins RN) Marijuana: No (08/25/2016 20:52:Corazon Martins RN) Cocaine: No (08/25/2016 20:52:Corazon Martins RN) Other Illicit Drugs: No (08/25/2016 20:52:Corazon Martins RN) VACCINE HISTORY Influenza Vaccine: Yes (08/25/2016 20:52:Kelly Edwards RN) Influenza Date: 05/2016 (Annotations: Data stored by [facility] on behalf of user) (08/25/2016 20:52:Kelly Edwards RN) Tdap Vaccine: Yes (08/25/2016 20:52:Corazon Martins RN) Aerial Installer: [facility] (08/25/2016 20:52:Kelly Edwards RN) Feeding Preference: Breast (08/25/2016 20:52:Corazon Martins RN) Benefit of Breast Feed Discussed: Yes (08/25/2016 20:52:Corazon Martins RN) Circumcision: Yes (08/25/2016 20:52:Corazon Martins RN) Classes Attended: Yes (08/25/2016 20:52:Corazon Martins RN) Tubal Ligation: No (08/25/2016 20:52:Corazon Martins RN) Tubal Authorization Signed: N/A (08/25/2016 20:52:Corazon Martins RN) Consent: N/A (08/25/2016 20:52:Corazon Martins RN) Consent Signed: N/A (08/25/2016 20:52:Corazon Martins RN) Pain Management Plans: Natural (08/25/2016 20:52:Corazon Martins RN) Plans for Labor and Delivery: None (08/25/2016 20:52:Kelly Edwards RN) Support Person: Karthik Rojas (08/25/2016 20:52:Corazon Martins RN) Support Person Relationship: (08/25/2016 20:52:Corazon Martins RN) Cultural/Spritual Practice: No (08/25/2016 20:52:Corazon Martins RN) Spir/Cult Dietary Needs: No (08/25/2016 20:52:Corazon Martins RN) LIVING SITUATION/DISCHARGE PLAN Living Arrangements: House (08/25/2016 20:52:Corazon Martins RN) Adequate Access to:: Electric; Heat; Refrigeration; Plumbing/Running water; Phone; Transportation (08/25/2016 20:52:Corazon Martins RN) WIC Program: Yes (08/25/2016 20:52:Corazon Martins RN) Discharge Scout Professional Sports Person: Karthik Rojas (08/25/2016 20:52:Corazon Martins RN) Person to Help after Discharge: Karthik Rojas (08/25/2016 20:52:Corazon Martins RN) Currently Using Commun Resources: Yes (08/25/2016 20:52:Corazon Martins RN) Specify Current Resource Used: Medicaid (08/25/2016 20:52:Corazon Martins RN) Outside Agency/[employer] Consultant: Yes (08/25/2016 20:52:Kelly Edwards RN) Car Seat for Discharge: Yes (08/25/2016 20:52:Corazon Martins RN) Adoption Requested: No (08/25/2016 20:52:Corazon Martins RN) Pt Contact w/infant Post : N/A (08/25/2016 20:52:Corazon Martins RN) LABS Blood Type: AB Positive (08/25/2016 20:52:Candace Carlos RN) Antibody Screen: negative (08/25/2016 20:52:Candace Carlos RN) Hemoglobin: 10.6 L (08/27/2016 18:02:QS system process) Hematocrit: 30.9 L (08/27/2016 18:02:QS system process) MCV: 83 (08/27/2016 18:02:QS system process) Group Beta Strep: negative (08/25/2016 20:52:Candace Carlos RN) Gonorrhea: Negative (08/25/2016 20:52:Candace Carlos RN) Chlamydia: Negative (08/25/2016 20:52:Candace Carlos RN) RPR/VDRL: Nonreactive (08/25/2016 20:52:Candace Carlos RN) HIV Results: non-reactive (08/25/2016 20:52:Candace Carlos RN) Hepatitis B: Negative (08/25/2016 20:52:Candace Carlos RN) Rubella: Non-Immune (08/25/2016 20:52:Candace Carlos RN) OB/PREVIOUS HISTORY Current Procedures: Ultrasound; NST (08/25/2016 20:52:Corazon Martins RN) History of Previous : No (08/25/2016 20:52:Corazon Martins RN) History of Gestational Diabetes: No (08/25/2016 20:52:Corazon Martins RN) History of PIH: No (08/25/2016 20:52:Corazon Martins RN) History of Incompetent Cervix: No (08/25/2016 20:52:Corazon Martins RN) History of Placenta Previa/Abrup: No (08/25/2016 20:52:Corazon Martins RN) History of Macrosomia: No (08/25/2016 20:52:Corazon Martins RN) History of IUGR: No (08/25/2016 20:52:Corazon Martins RN) History of Hemorrhage: No (08/25/2016 20:52:Corazon Martins RN) History of Loss/Stillborn: No (08/25/2016 20:52:Corazon Martins RN) History of : No (08/25/2016 20:52:Corazon Martins RN) History of D (Rh) Sensitization: No (08/25/2016 20:52:Corazon Martins RN) History Recurrent Loss/Stillborn: No (08/25/2016 20:52:Corazon Martins RN) History Depression/PP Depression: No (08/25/2016 20:52:Corazon Martins RN) History of Uterine Anomaly/BENNY: No (08/25/2016 20:52:Corazon Martins RN) History of Infertility: No (08/25/2016 20:52:Corazon Martins RN) History of ART Treatment: No (08/25/2016 20:52:Corazon Martins RN) History of BENNY: No (08/25/2016 20:52:Corazon Martins RN) Comments Obstetrical History: G1PO- Current (08/25/2016 20:52:Kelly Edwards RN) MEDICAL HISTORY Med Hx Diabetes: No (08/25/2016 20:52:Corazon Martins RN) Med Hx Hypertension: No (08/25/2016 20:52:Corazon Martins RN) Med Hx Heart Disease: No (08/25/2016 20:52:Corazon Martins RN) Med Hx Autoimmune Disorder: No (08/25/2016 20:52:Corazon Martins RN) Med Hx Kidney Disease/UTI: No (08/25/2016 20:52:Corazon Martins RN) Med Hx Neurologic/Epilepsy: No (08/25/2016 20:52:Corazon Martins RN) Med Hx Psychiatric Disorders: No (08/25/2016 20:52:Corazon Martins RN) Med Hx Hepatitis/Liver Disease: No (08/25/2016 20:52:Corazon Martins RN) Med Hx Varicosities/Phlebitis: No (08/25/2016 20:52:Corazon Martins RN) Med Hx Thyroid Dysfunction: No (08/25/2016 20:52:Corazon Martins RN) Med Hx Trauma/Violence: No (08/25/2016 20:52:Corazon Martins RN) Med Hx Blood Transfusion: No (08/25/2016 20:52:Corazon Martins RN) Med Hx Pulmonary (Asthma,TB): No (08/25/2016 20:52:Corazon Martins RN) Med Hx Breast: No (08/25/2016 20:52:Corazon Martins RN) Med Hx RETAIL SALES PROFESSIONAL Surgery: No (08/25/2016 20:52:Corazon Martins RN) Med Hx Hospitalization/Surgery: No (08/25/2016 20:52:Corazon Martins RN) Med Hx Anesthetic Complications: No (08/25/2016 20:52:Corazon Martins RN) Med Hx Abnormal Pap Smear: No (08/25/2016 20:52:Corazon Martins RN) Other Medical Diseases: No (08/25/2016 20:52:Corazon Martins RN) Med Hx Significant Family Hx: No (08/25/2016 20:52:Corazon Martins RN) INFECTIOUS HISTORY Inf Hx Gonorrhea: No (08/25/2016 20:52:Corazon Martins RN) Inf Hx Chlamydia: No (08/25/2016 20:52:Corazon Martins RN) Inf Hx Syphilis: No (08/25/2016 20:52:Corazon Martins RN) Inf Hx HIV/AIDS: No (08/25/2016 20:52:Corazon Martins RN) Inf Hx Human Papilloma Virus: No (08/25/2016 20:52:Corazon Martins RN) Inf Hx Pt/Partner Genital Herpes: No (08/25/2016 20:52:Corazon Martins RN) Inf Hx Tuberculosis/Exposure: No (08/25/2016 20:52:Corazon Martins RN) Inf Hx Hepatitis B,C: No (08/25/2016 20:52:Corazon Martins RN) Inf Hx Rash or Viral Illness: No (08/25/2016 20:52:Corazon Martins RN) GENETIC HISTORY Gen Hx Age >=35 at CINTYHA: No (08/25/2016 20:52:Corazon Martins RN) Gen Hx Thalassemia: No (08/25/2016 20:52:Corazon Martins RN) Gen Hx Congenital Heart Defect: No (08/25/2016 20:52:Corazon Martins RN) Gen Hx Neural Tube Defect: No (08/25/2016 20:52:Corazon Martins RN) Gen Hx Down's Syndrome: No (08/25/2016 20:52:Corazon Martins RN) Gen Hx Javier-Sachs: No (08/25/2016 20:52:Corazon Martins RN) Gen Hx Pineda: No (08/25/2016 20:52:Corazon Martins RN) Gen Hx Familial Dysautonomia: No (08/25/2016 20:52:Corazon Martins RN) Gen Hx Sickle Cell Disease/Trait: No (08/25/2016 20:52:Corazon Martins RN) Gen Hx Hemophilia/Blood Disorder: No (08/25/2016 20:52:Corazon Martins RN) Gen Hx Muscular Dystrophy: No (08/25/2016 20:52:Corazon Martins RN) Gen Hx Cystic Fibrosis: No (08/25/2016 20:52:Corazon Martins RN) Gen Hx Huntingtons Chorea: No (08/25/2016 20:52:Corazon Martins RN) Gen Hx Mental Retardation/Autism: No (08/25/2016 20:52:Corazon Maritns RN) Gen Hx Tested for Fragile X: No (08/25/2016 20:52:Corazon Martins RN) Gen Hx Other Inher/Chromosomal: No (08/25/2016 20:52:Corazon Martins RN) Gen Hx Maternal Metabolic DO: No (08/25/2016 20:52:Corazon Martins RN) Gen Hx Pt Father or FOB Defect: No (08/25/2016 20:52:Corazon Martins RN) Gen Hx Other Genetic History: No (08/25/2016 20:52:Corazon Martins RN) Gen Hx Drugs/Meds since LMP: No (08/25/2016 20:52:Corazon Martins RN)
--- NOTE | 2016-08-29 06:16 | L&D Care Plan ---
LD CARE PLANS Datetime Report Generated by CPN: 08/29/2016 06:15 Datetime: 08/27/2016 17:47 State: Risk For (Gloria Olivo RN) Related To: Labor and Delivery Process; Surgical Procedure; Complication(s) of ; Disease Process; Treatment and Procedures; Post (Gloria Olivo RN) Goal(s): Patients Pain will be Assessed and Managed; Patient will Verbalize Adequate Relief of Pain or the Ability to [place] with Current Pain (Gloria Olivo RN) Interventions: Assess Pain Severity on Scale of 0 (None) to 5 (Severe); Assess Type, Location and Intensity of Pain Each Time Client Reports Discomfort and Notify Provider if Unusal Pain Develops; Encourage Proper Breathing and Relaxation Techniques; Offer Alternatives Such as Repositioning, Calm Environment, Massages, Diversional Activities, Ice Pack, Splinting, and Ambulation; Administer Analgesics as Ordered; Assist with Epidural Placement as Appropriate; Evaluate Therapeutic Effectiveness of Medication and Treatments (Gloria Olivo RN) Outcome: Patient will Report Absence or Relief of Pain Consistent with Established Pain Goal (Gloria Olivo RN) Status: Ongoing (Gloria Olivo RN) Outcome: Patient will have a Decrease in Signs and Symptoms of Discomfort (Gloria Olivo RN) Status: Ongoing (Gloria Olivo RN) Outcome: Pain will be Controlled During Procedures (Gloria Olivo RN) Status: Ongoing (Gloria Olivo RN) State: Risk For (Gloria Olivo RN) Related To: Labor and Delivery Process; Surgical Procedure; Perceived or Actual Threat to ; Fear of Unknown; Situational Crisis; Medical Interventions; Significant Life Event (Gloria Olivo RN) Goal(s): Patient will have Decreased Anxiety and be able to Function at Acceptable Levels (Gloria Olivo RN) Interventions: Assess Verbal and Nonverbal Behavioral Indicators of Anxiety; Assist Patient to Identify and Verbalize Symptoms of Anxiety; Identify and Demonstrate Techniques to Control Anxiety; Assist Patient with Coping Mechanisms to Manage Anxiety; Provide Theraputic Touch for the Patient; Explain to Patient, Using a Calm Reassuring Approach and Nonmedical Terms, All Activities, Procedures, and Concerns; Instruct Patient and Family about Post Discharge Care, Limitations, Symptoms to Report and Resources Available (Gloria Olivo RN) Outcome: Patient will Identify, Verbalize and Demonstrate Techniques to Control Anxiety (Gloria Olivo RN) Status: Ongoing (Gloria Olivo RN) Outcome: Patient's Posture, Facial Expressions, Gestures and Activity Level will Reflect Decreased Anxiety (Gloria Olivo RN) Status: Ongoing (Gloria Olivo RN) Outcome: Patient will Verbalize a Sense of Control and/or Acceptance of the Situation (Gloria Olivo RN) Status: Ongoing (Gloria Olivo RN) Outcome: Patient will Identify and Utilize Support Person (Gloria Olivo RN) Status: Ongoing (Gloria Olivo RN) Status: Ongoing (Gloria Olivo RN) State: Risk For (Gloria Olivo RN) Related To: Labor and Delivery Process; Surgical Procedures; Treatment and Procedures; Impending Alterations in Family Dynamics; Feeding and Infant Care; Community Resources and Available Support Mechanisms (Gloria Olivo RN) Goal(s): Patient will Accurately Verbalize Understanding of Plan of Care and Treatment; Patient and Family will Accurately Verbalize Understanding of the Disease Process (Gloria Olivo RN) Interventions: Assess Motivation and Willingness of Patient/Family to Learn; Assess Preferred Learning Mode: One to One Instruction, Reading, Videos, Group Discussion or Demonstration; Assess Barriers to Learning: Pain, Emotional State, Language Barrier, Cognitive Impairment, Visual or Hearing Deficits; Assess Patient and Family Knowledge of Disease Process, Medications and Treatment; Discuss Therapy and/or Treatment Options, Describe Rationale Behind Management, Therapy and Treatment Recommendations; Instruct Patient and Family on Signs and Symptoms to Report; Instruct Patient and Family on Medication Effects and Side Effects; Provide Appropriate and Timely Education Using Multiple Techniques; Provide Patient and Family with Support Group Information and Resources; Give Clear and Thorough Explanations and Demonstrations (Gloria Olivo RN) Outcome: Patient and Family will Verbalize Understanding of Condition, Treatment and Signs and Symptoms to Report (Gloria Olivo RN) Status: Ongoing (Gloria Olivo RN) Outcome: Patient will Identify Perceived Learning Needs and Express Motivation to Learn (Gloria Olivo RN) Status: Ongoing (Gloria Olivo RN) Outcome: Patient will Verbalize Understanding of Desired Content, and/or Performs Desired Skill Prior to Discharge (Gloria Olivo RN) Status: Ongoing (Gloria Olivo RN) State: Risk For (Gloria Olivo RN) Related To: Surgical Procedures; Prolonged Labor or Induction; Premature/Prolonged Rupture of Membranes; Invasive Procedures; Altered Tissue Integrity (Gloria Olivo RN) Goal(s): The Patient will be Free of Infection, Vital Signs Stable and Lab Work within Normal Parameters (Gloria Olivo RN) Interventions: Instruct and Reinforce Proper Handwashing, Hygiene, and Care Techniques to Patient and Family; Monitor Vital Signs; Monitor Patient for the Following Signs of Infection: Fever, Abdominal Tenderness, Unusual Discharge; Monitor Aminiotic Fluid, Urine and Lochia for Color and Odor; Observe Wounds, Incisions and Invasive Line Sites for Redness, Drainage and Edema; Assess IV Sites per Hospital Policy; Monitor Lab and Test Results and Notify Provider of Abnormal Findings; Assess Nutritional Status and Promote Good Nutrition (Gloria Olivo RN) Outcome: Patient will Remain Free of Infection (Gloria Olivo RN) Status: Ongoing (Gloria Olivo RN) Outcome: Infection will be Recognized Early to Allow for Prompt Treatment (Gloria Olivo RN) Status: Ongoing (Gloria Olivo RN) Outcome: Patient will have Vital Signs Within Expected Range (Gloria Olivo RN) Status: Ongoing (Gloria Pallavi, RN) Datetime: 08/27/2016 17:46 State: Risk For (Gloria Olivo RN) Related To: Labor and Delivery Process; Surgical Procedure; Complication(s) of ; Disease Process; Treatment and Procedures; Post (Gloria Olivo RN) Goal(s): Patients Pain will be Assessed and Managed; Patient will Verbalize Adequate Relief of Pain or the Ability to [place] with Current Pain (Gloria Olivo RN) Interventions: Assess Pain Severity on Scale of 0 (None) to 5 (Severe); Assess Type, Location and Intensity of Pain Each Time Client Reports Discomfort and Notify Provider if Unusal Pain Develops; Encourage Proper Breathing and Relaxation Techniques; Offer Alternatives Such as Repositioning, Calm Environment, Massages, Diversional Activities, Ice Pack, Splinting, and Ambulation; Administer Analgesics as Ordered; Assist with Epidural Placement as Appropriate; Evaluate Therapeutic Effectiveness of Medication and Treatments (Gloria Olivo RN) Outcome: Patient will Report Absence or Relief of Pain Consistent with Established Pain Goal (Gloria Olivo RN) Status: Ongoing (Gloria Olivo RN) Outcome: Patient will have a Decrease in Signs and Symptoms of Discomfort (Gloria Olivo RN) Status: Ongoing (Gloria Olivo RN) Outcome: Pain will be Controlled During Procedures (Gloria Olivo RN) Status: Ongoing (Gloria Olivo RN) State: Risk For (Gloria Olivo RN) Related To: Labor and Delivery Process; Surgical Procedure; Perceived or Actual Threat to ; Fear of Unknown; Situational Crisis; Medical Interventions; Significant Life Event (Gloria Olivo RN) Goal(s): Patient will have Decreased Anxiety and be able to Function at Acceptable Levels (Gloria Olivo RN) Interventions: Assess Verbal and Nonverbal Behavioral Indicators of Anxiety; Assist Patient to Identify and Verbalize Symptoms of Anxiety; Identify and Demonstrate Techniques to Control Anxiety; Assist Patient with Coping Mechanisms to Manage Anxiety; Provide Theraputic Touch for the Patient; Explain to Patient, Using a Calm Reassuring Approach and Nonmedical Terms, All Activities, Procedures, and Concerns; Instruct Patient and Family about Post Discharge Care, Limitations, Symptoms to Report and Resources Available (Gloria Olivo RN) Outcome: Patient will Identify, Verbalize and Demonstrate Techniques to Control Anxiety (Gloria Olivo RN) Status: Ongoing (Gloria Olivo RN) Outcome: Patient's Posture, Facial Expressions, Gestures and Activity Level will Reflect Decreased Anxiety (Gloria Olivo RN) Status: Ongoing (Gloria Olivo RN) Outcome: Patient will Verbalize a Sense of Control and/or Acceptance of the Situation (Gloria Olivo RN) Status: Ongoing (Gloria Olivo RN) Outcome: Patient will Identify and Utilize Support Person (Gloria Olivo RN) Status: Ongoing (Gloria Olivo RN) Status: Ongoing (Gloria Olivo RN) State: Risk For (Gloria Olivo RN) Related To: Labor and Delivery Process; Surgical Procedures; Treatment and Procedures; Impending Alterations in Family Dynamics; Feeding and Care; Community Resources and Available Support Mechanisms (Gloria Olivo RN) Goal(s): Patient will Accurately Verbalize Understanding of Plan of Care and Treatment; Patient and Family will Accurately Verbalize Understanding of the Disease Process (Gloria Olivo RN) Interventions: Assess Motivation and Willingness of Patient/Family to Learn; Assess Preferred Learning Mode: One to One Instruction, Reading, Videos, Group Discussion or Demonstration; Assess Barriers to Learning: Pain, Emotional State, Language Barrier, Cognitive Impairment, Visual or Hearing Deficits; Assess Patient and Family Knowledge of Disease Process, Medications and Treatment; Discuss Therapy and/or Treatment Options, Describe Rationale Behind Management, Therapy and Treatment Recommendations; Instruct Patient and Family on Signs and Symptoms to Report; Instruct Patient and Family on Medication Effects and Side Effects; Provide Appropriate and Timely Education Using Multiple Techniques; Provide Patient and Family with Support Group Information and Resources; Give Clear and Thorough Explanations and Demonstrations (Gloria Olivo RN) Outcome: Patient and Family will Verbalize Understanding of Condition, Treatment and Signs and Symptoms to Report (Gloria Olivo RN) Status: Ongoing (Gloria Olivo RN) Outcome: Patient will Identify Perceived Learning Needs and Express Motivation to Learn (Gloria Olivo RN) Status: Ongoing (Gloria Olivo RN) Outcome: Patient will Verbalize Understanding of Desired Content, and/or Performs Desired Skill Prior to Discharge (Gloria Olivo RN) Status: Ongoing (Gloria Olivo RN) State: Risk For (Gloria Olivo RN) Related To: Surgical Procedures; Prolonged Labor or Induction; Premature/Prolonged Rupture of Membranes; Invasive Procedures; Altered Tissue Integrity (Gloria Olivo RN) Goal(s): The Patient will be Free of Infection, Vital Signs Stable and Lab Work within Normal Parameters (Gloria Olivo RN) Interventions: Instruct and Reinforce Proper Handwashing, Hygiene, and Care Techniques to Patient and Family; Monitor Vital Signs; Monitor Patient for the Following Signs of Infection: Fever, Abdominal Tenderness, Unusual Discharge; Monitor Aminiotic Fluid, Urine and Lochia for Color and Odor; Observe Wounds, Incisions and Invasive Line Sites for Redness, Drainage and Edema; Assess IV Sites per Hospital Policy; Monitor Lab and Test Results and Notify Provider of Abnormal Findings; Assess Nutritional Status and Promote Good Nutrition (Gloria Olivo RN) Outcome: Patient will Remain Free of Infection (Gloria Olivo RN) Status: Ongoing (Gloria Olivo RN) Outcome: Infection will be Recognized Early to Allow for Prompt Treatment (Gloria Olivo RN) Status: Ongoing (Gloria Olivo RN) Outcome: Patient will have Vital Signs Within Expected Range (Gloria Olivo RN) Status: Ongoing (Gloria Olivo RN)
[2016-08-29 07:50] LABS: HEMATOCRIT 26.1 % (36.0-47.0); HGB HCT DIFFERENCE 0.9; MEAN CORPUSCULAR HEMOGLOBIN 28.4 pg (27.0-33.4); MEAN CORPUSCULAR HGB CONC 34.4 g/dL (32.0-36.0); MEAN CORPUSCULAR VOLUME 82 fl (80-97); RED BLOOD COUNT 3.17 10^6/uL (3.72-5.28); RED CELL DISTRIBUTION WIDTH 13.2 % (11.5-14.0); WHITE BLOOD COUNT 11.8 10^3/uL (4.0-10.5)
[2016-08-29] MEDS: FERROUS SULFATE 325 MG TABLET PO SCH ×2 (10:11→17:44)
[2016-08-29] MEDS: SENNOSIDES/DOCUSATE 8.6-50 MG 1 EACH TABLET PO SCH (10:11)
[2016-08-29] MEDS: PRENATAL VITAMIN W-O CA NO5/FE FUMARATE/FA CAPSULE PO SCH (10:11)
[2016-08-29] MEDS: DOCUSATE SODIUM 100 MG CAPSULE PO SCH ×2 (10:11→17:44)
--- NOTE | 2016-08-29 14:30 | PDOC PROGRESS REPORT ---
Subjective-OB Subjective: Post Delivery Day: 26 year old G1 now P1 s/p pp day 1. Ambulating, voiding and without difficulty. Denies any needs at this time Physical Exam (OB) Vital Signs: Temp Pulse Resp BP Pulse Ox 97.6 F 75 16 128/76 H 100 08/29/16 07:57 08/29/16 07:57 08/29/16 07:57 08/29/16 07:57 08/29/16 07:57 Intake & Output 08/28/16 08/29/16 08/30/16 06:59 06:59 06:59 Weight 90.7 kg - General General Appearance: Appears well In distress: None - Lochia Lochia Amount: Small 10-25 ml Lochia Color: Rubra/Red - Abdomen Description: Soft Hernia Present: No Fundal Description: Firm, Midline Fundal Height: u/u - u/2 - Respiratory Respiratory Status: No respiratory distress - Extremities Upper extremity: Normal inspection Lower extremities: Edema - +1 bilaterally - Neurological Cognition: Normal Orientation: AAOx4 - Psychological Associated symptoms: Normal affect - bonding well with baby. Helpful family at bedside, Normal mood Objective-Diagnostic Laboratory: 08/29/16 07:40 08/29/16 07:40 WBC 11.8 H RBC 3.17 L Hgb 9.0 L Hct 26.1 L MCV 82 MCH 28.4 MCHC 34.4 RDW 13.2 Plt Count 209 Assessment and Plan(PN) - Assessment and Plan (1) Delivery normal Is this a current diagnosis for this admission?: YesPlan: continue stay (2) Anemia Qualifiers: Anemia type: unspecified type Qualified Code(s): D64.9 - Anemia, unspecified Is this a current diagnosis for this admission?: YesPlan: iron supplementation - Time Spent with Patient Time with patient: 15-25 minutes Medications reviewed and adjusted accordingly: Yes - Disposition Anticipated Discharge: Home Within: within 24 hours
[2016-08-30] MEDS: IBUPROFEN 800 MG TABLET PO SCH (05:10)
[2016-08-30] MEDS: FERROUS SULFATE 325 MG TABLET PO SCH (09:44)
[2016-08-30] MEDS: PRENATAL VITAMIN W-O CA NO5/FE FUMARATE/FA CAPSULE PO SCH (09:44)
[2016-08-30] MEDS: DOCUSATE SODIUM 100 MG CAPSULE PO SCH (09:44)
[2016-08-30] MEDS: SENNOSIDES/DOCUSATE 8.6-50 MG 1 EACH TABLET PO SCH (09:44)
--- NOTE | 2016-08-30 10:26 | PDOC PROGRESS REPORT ---
Subjective-OB Subjective: Post Delivery Day: 26 year old. Denies any needs at this time Doing well, no c/o, voiding, diet taken well, scant lochia Physical Exam (OB) Vital Signs: Temp Pulse Resp BP Pulse Ox 97.7 F 72 16 111/62 100 08/30/16 08:57 08/30/16 08:57 08/30/16 08:57 08/30/16 08:57 08/30/16 08:57 - Lochia Lochia Amount: Small 10-25 ml Lochia Color: Rubra/Red - Abdomen Description: Soft Hernia Present: No Fundal Description: Firm, Midline Fundal Height: u/u - u/2 Objective-Diagnostic Laboratory: 08/29/16 07:40 Assessment and Plan(PN) - Assessment and Plan (1) Anemia Qualifiers: Anemia type: unspecified type Qualified Code(s): D64.9 - Anemia, unspecified Is this a current diagnosis for this admission?: Yes (3) Delivery normal Is this a current diagnosis for this admission?: Yes - Time Spent with Patient Medications reviewed and adjusted accordingly: Yes - Disposition Anticipated Discharge: Home Within: Other - home today
--- NOTE | 2016-08-30 10:29 | PDOC DISCHARGE SUMMARY ---
Final Diagnosis Discharge Date: 08/30/16 - Final Diagnosis (1) Anemia Is this a current diagnosis for this admission?: Yes (2) Late onset care Is this a current diagnosis for this admission?: Yes (3) Delivery normal Is this a current diagnosis for this admission?: Yes Discharge Data - Discharge Medication Home Medications: Metronidazole [Flagyl 500 mg Tablet] 500 mg PO DAILY 08/25/16 Pnv with Ca,No.72/Iron/FA [Pnv Plus Multivit Tab] 1 each PO DAILY 08/25 Ferrous Sulfate [Feosol 325 mg Tablet] 325 mg PO BID #0 tablet 08/30/16 Gestational Age: 40.2 Reason(s) for Admission: PROM Procedures: Ultrasound Intrapartum Procedure(s): Spontaneous Vaginal Delivery Complication(s): Laceration-Perineal Laceration-Degree: 2nd - Data Baby 1 Male at 1 minute: 8 at 5 minutes: 9 Weight: 3.941 kg Home with Mother: Yes Complications: No - Diagnosis Test Laboratory: Temp Pulse Resp BP Pulse Ox 97.7 F 72 16 111/62 100 08/30/16 08:57 08/30/16 08:57 08/30/16 08:57 08/30/16 08:57 08/30/16 08:57 08/27/16 08/27/16 08/29/16 14:15 18:02 07:40 RBC 3.74 3.17 L Hgb 10.6 L 9.0 L Hct 30.9 L 26.1 L Urine Opiates Screen NEGATIVE - Discharge information/Instructions Discharge Activity: Activity As Tolerated, No Lifting Over 10 Pounds, Pelvic Rest, No tub bath Discharge Diet: As Tolerated, Regular Disposition: HOME, SELF-CARE Follow up with: [facility] in: 4, Weeks
[2016-08-30 10:45] VITALS: BP 111/62
== END 2016-08-30 13:47 | disposition home or self-care (01) | DRG 775 ==
LOC: LC 14:05 → LR 17:52 → 2S 08-28 05:30
PROVIDERS: ADMIT Obstetrics & Gynecology; ATTEND Obstetrics & Gynecology
PROC: 10907ZC Drainage of Amniotic Fluid, Therapeutic from Products of Conception, Via Natural or Artificial Opening (ICD-10-PCS; 2016-08-27)
PROC: 4A1HXCZ Monitoring of Products of Conception, Cardiac Rate, External Approach (ICD-10-PCS; 2016-08-27)
PROC: 10E0XZZ Delivery of Products of Conception, External Approach (ICD-10-PCS; principal; 2016-08-28)
PROC: 0KQM0ZZ Repair Perineum Muscle, Open Approach (ICD-10-PCS; 2016-08-28)
DX: O99.02 Anemia complicating childbirth (principal); D64.9 Anemia, unspecified; O70.1 Second degree perineal laceration during delivery; Z28.21 Immunization not carried out because of patient refusal; Z87.891 Personal history of nicotine dependence; Z3A.40 40 weeks gestation of pregnancy; Z37.0 Single live birth
CPT/HCPCS: 36415; 80307; 81005; 85025; 85027; 86592; 86850; 86900; 86901; 94760; J2590; J3490